=== PATIENT | female | born 1995 | race Caucasian/White ===

== ENCOUNTER 2022-08-30 18:58 | Emergency (ER) | payer OTHER ==
[~2022-08-30] VITALS: Ht 160 cm; Wt 81.7 kg
[2022-08-30 21:25] LABS: BASOPHILS ABSOLUTE AUTO 0.08 K/mm3 (0.00-0.23); BASOPHILS PERCENT AUTO 2 % (0-2); EOSINOPHILS ABSOLUTE AUTO 0.03 K/mm3 (0.00-0.68); EOSINOPHILS PERCENT AUTO 1 % (0-6); Hemoglobin 15.3 g/dL (11.5-16.0); IMMATURE GRAN ABSOLUTE AUTO 0.01 K/mm3 (0.00-0.10); IMMATURE GRAN PERCENT AUTO 0 % (0-1); LYMPHOCYTES ABSOLUTE AUTO 1.41 K/mm3 (0.84-5.20); LYMPHOCYTES PERCENT AUTO 30 % (21-46); MONOCYTES ABSOLUTE AUTO 0.47 K/mm3 (0.16-1.47); MONOCYTES PERCENT AUTO 10 % (4-13); Mean Corpuscular HGB 32.5 pg (26.0-34.0); Mean Corpuscular HGB Conc 34.8 g/dL (31.5-36.5); Mean Corpuscular Volume 93 fL (80-100); Mean Platelet Volume 9.1 fL (9.1-12.4); NEUTROPHILS ABSOLUTE AUTO 2.77 K/mm3 (1.96-9.15); NEUTROPHILS PERCENT AUTO 58 % (41-73); Platelet Count 333 K/mm3 (150-400); RDW Standard Deviation 44.7 fL (35.1-46.3); Red Blood Cell Count 4.71 M/mm3 (3.80-5.20); White Blood Cell Count 4.77 K/mm3 (4.00-11.30)
[2022-08-30 21:45] LABS: Albumin, Blood 3.8 g/dL (3.4-5.0); Albumin/Globulin Ratio 0.8 (0.8-1.8); Bilirubin, Total 0.9 mg/dL (0.1-1.0); Bun/Creatinine Ratio 17.7 (12.0-20.0); Calcium, Blood 9.5 mg/dL (8.5-10.1); Creatinine, Blood 0.45 mg/dL (0.40-1.00); Globulin, Blood 4.8 g/dL (2.2-4.0); Potassium, Blood 4.2 mmol/L (3.5-5.5); Total Protein, Blood 8.6 g/dL (6.4-8.2)
== END 2022-08-30 23:10 | disposition home or self-care (01) ==
LOC: ER 18:58
PROVIDERS: Physician Assistant
DX: S93.401A Sprain of unspecified ligament of right ankle, initial encounter (principal); R00.0 Tachycardia, unspecified; F17.210 Nicotine dependence, cigarettes, uncomplicated; W10.9XXA Fall (on) (from) unspecified stairs and steps, initial encounter; Z88.0 Allergy status to penicillin
CPT/HCPCS: 71046; 73610; 80053; 84703; 85025; 85379; 93005; 93010; 99284-25; A9270; J7030

== ENCOUNTER 2022-09-12 14:25 | Inpatient (IN) | payer OTHER ==
[~2022-09-12] VITALS: Ht 160 cm; Wt 97.3 kg
[~2022-09-12 14:25] MED LIST: ONDA4ODT MM
[2022-09-12 15:35] LABS: BASOPHILS ABSOLUTE AUTO 0.07 K/mm3 (0.00-0.23); BASOPHILS PERCENT AUTO 1 % (0-2); EOSINOPHILS ABSOLUTE AUTO 0.06 K/mm3 (0.00-0.68); EOSINOPHILS PERCENT AUTO 1 % (0-6); Hematocrit 38.4 % (33.0-51.0); Hemoglobin 13.7 g/dL (11.5-16.0); IMMATURE GRAN ABSOLUTE AUTO 0.07 K/mm3 (0.00-0.10); IMMATURE GRAN PERCENT AUTO 1 % (0-1); LYMPHOCYTES ABSOLUTE AUTO 1.22 K/mm3 (0.84-5.20); LYMPHOCYTES PERCENT AUTO 21 % (21-46); MONOCYTES ABSOLUTE AUTO 0.72 K/mm3 (0.16-1.47); MONOCYTES PERCENT AUTO 12 % (4-13); Mean Corpuscular HGB 32.5 pg (26.0-34.0); Mean Corpuscular HGB Conc 35.7 g/dL (31.5-36.5); Mean Corpuscular Volume 91 fL (80-100); Mean Platelet Volume 9.5 fL (9.1-12.4); NEUTROPHILS ABSOLUTE AUTO 3.77 K/mm3 (1.96-9.15); NEUTROPHILS PERCENT AUTO 64 % (41-73); NRBC ABSOLUTE 0.02 K/mm3 (0.00-0.02); NRBC Auto 0.3 /100 WBC (0.0-0.2); Platelet Count 374 K/mm3 (150-400); RDW Coefficient Variation 12.1 % (11.7-14.2); RDW Standard Deviation 40.4 fL (35.1-46.3); Red Blood Cell Count 4.21 M/mm3 (3.80-5.20); White Blood Cell Count 5.91 K/mm3 (4.00-11.30)
[2022-09-12 15:52] LABS: Albumin, Blood 3.7 g/dL (3.4-5.0); Albumin/Globulin Ratio 0.9 (0.8-1.8); Bilirubin, Direct 0.6 mg/dL (0.0-0.3); Bilirubin, Indirect 0.3 mg/dL (0.1-0.7); Bilirubin, Total 0.9 mg/dL (0.1-1.0); Calcium, Blood 10.3 mg/dL (8.5-10.1); Creatinine, Blood 0.45 mg/dL (0.40-1.00); Globulin, Blood 4.3 g/dL (2.2-4.0); Magnesium, Blood 1.5 mg/dL (1.6-2.4); Potassium, Blood 2.5 mmol/L (3.5-5.5)
[2022-09-12 20:35] LABS: Ethanol (Alcohol), Blood, Med <3 mg/dL; Magnesium, Blood 1.6 mg/dL (1.6-2.4)
[2022-09-12 23:10] LABS: Source, Urine Clean Catch
[2022-09-12 23:19] LABS: Appearance, Urine Clear (Clear); Bilirubin, Urine Neg (Neg); Blood, Urine 1+ (Neg); Color, Urine Amber (P-Yellow); Glucose Qualitative, Urine Neg (Neg); Ketones, Urine Neg (Neg); Leukocyte Esterase, Urine 3+ (Neg); Nitrite, Urine Neg (Neg); Protein, Urine 2+ (Neg); Urobilinogen, Urine 1+ (Normal); pH, Urine 6.5 (5.0-8.0)
[2022-09-12 23:59] LABS: Bacteria Mod /hpf; Calcium Oxalate Crystals Few /hpf; Hyaline Casts 0-2 /lpf (0-2); Squamous Epithelial Cells Few /hpf (Few); White Blood Cells, Urine 25-50 /hpf (0-5)
[2022-09-13 00:59] VITALS: BP 115/72
[2022-09-13] MEDS ORDERED: ACET500 PO (01:12)
[2022-09-13] MEDS ORDERED: IBUP600 PO (01:12)
--- NOTE | 2022-09-13 01:56 | NUR ---
PT ARRIVED TO ROOM 338 FROM ER. PT A/O, HR TACHY 1'TEENS. PT REP OCC CHEST PRESSURE AND PALPITATIONS, DENIES AT THIS TIME. ATTEMPTED TO TX PT FROM GURNEY TO BED, PT LEGS APPEARED TO BUCKLE, PT NEEDED MAX ASSIST TO COMPLETE TX TO BED. PT REP LEGS W/INC WEAKNESS APPX 2 WEEKS. BLE WEAK, PT REP LEGS FEEL NUMB, REP DEC SENSATION TO FEET. PT REP OCC SHARP SHOOTING PAINS TO BLE. FEET COOL/PINK, CAP REFILL APPX 5 SEC. BUE TIME STUDY OBSERVER WEAK W/MILD TREMORS NOTED, PT REP TREMORS NEW R/T BLE WEAKNESS. PT REP ETOH USE APPX 4X WEEK, REP LAST DRINK APPX 36 HRS AGO. PT REP MILD NAUSEA, REP CHRONIC DIARRHEA, DENIES BLOODY STOOLS. ABD SOFT, MOD DISTENDED, PT REP PAIN TO RUQ AND ACCROSS UPPER ABD, REP ABD PAIN KEMAL AT THIS TIME. PT AND BROTHER ORIENTED TO ROOM/CALL LIGHT AND TX PLAN.
[2022-09-13 05:34] LABS: BASOPHILS ABSOLUTE AUTO 0.04 K/mm3 (0.00-0.23); BASOPHILS PERCENT AUTO 1 % (0-2); EOSINOPHILS ABSOLUTE AUTO 0.08 K/mm3 (0.00-0.68); EOSINOPHILS PERCENT AUTO 2 % (0-6); Hematocrit 32.8 % (33.0-51.0); Hemoglobin 11.3 g/dL (11.5-16.0); IMMATURE GRAN ABSOLUTE AUTO 0.08 K/mm3 (0.00-0.10); IMMATURE GRAN PERCENT AUTO 2 % (0-1); LYMPHOCYTES ABSOLUTE AUTO 1.07 K/mm3 (0.84-5.20); LYMPHOCYTES PERCENT AUTO 24 % (21-46); MONOCYTES ABSOLUTE AUTO 0.68 K/mm3 (0.16-1.47); MONOCYTES PERCENT AUTO 16 % (4-13); Mean Corpuscular HGB Conc 34.5 g/dL (31.5-36.5); Mean Corpuscular Volume 93 fL (80-100); Mean Platelet Volume 9.5 fL (9.1-12.4); NEUTROPHILS ABSOLUTE AUTO 2.45 K/mm3 (1.96-9.15); NEUTROPHILS PERCENT AUTO 56 % (41-73); Platelet Count 312 K/mm3 (150-400); RDW Coefficient Variation 12.4 % (11.7-14.2); RDW Standard Deviation 42.4 fL (35.1-46.3); Red Blood Cell Count 3.53 M/mm3 (3.80-5.20)
[2022-09-13 05:54] LABS: Albumin, Blood 3.2 g/dL (3.4-5.0); Albumin/Globulin Ratio 0.9 (0.8-1.8); Bilirubin, Total 0.7 mg/dL (0.1-1.0); Bun/Creatinine Ratio 18.8 (12.0-20.0); Calcium, Blood 8.5 mg/dL (8.5-10.1); Creatinine, Blood 0.37 mg/dL (0.40-1.00); Globulin, Blood 3.7 g/dL (2.2-4.0); Potassium, Blood 2.7 mmol/L (3.5-5.5); Total Protein, Blood 6.9 g/dL (6.4-8.2)
[2022-09-13 06:31] LABS: Magnesium, Blood 2.1 mg/dL (1.6-2.4)
--- NOTE | 2022-09-13 07:54 | NUR ---
PT HR TRENDING 90'S THIS AM, PT DENIES CP/PRESSURE OR PALPITATIONS. OTHER VSS. PT CONT TO C/O BLE NUMBNESS, LEGS WEAK AND UNCOORDINATED WHEN UP, PT CONT TO C/O THROBBING W/INTERMITTANT SHARP SHOOTING PAINS IN LEDS. BUE WEAK, PT HAVING DIFFICULTY W/FINE MOTOR SKILLS. PT NEEDING 2 MAX ASSIST TO BSC. PT DENIED ABD PAIN/N/V, DID HAVE DIARRHEA X1. PT MEDCIATED FOR BLE PAIN W/FENTANYL X1 W/MINIMAL RELIEF. IVF AND K+ RUNNING PER EMAR. BEDSIDE REPORT GIVEN TO MILAGROS KING.
[2022-09-13 08:03] VITALS: BP 121/80
[2022-09-13 12:15] LABS: Bun/Creatinine Ratio 16.5 (12.0-20.0); Creatinine, Blood 0.36 mg/dL (0.40-1.00); Potassium, Blood 3.5 mmol/L (3.5-5.5)
[2022-09-13 13:12] LABS: Thyroid Stimulating Hormone 1.09 uIU/mL (0.360-4.800)
[2022-09-13 15:43] VITALS: BP 118/79
--- NOTE | 2022-09-13 18:36 | NUR ---
PT X2 MAX ASSIST TO BSC. PT IS FAR FROM BASELINE PHYSICALLY. PT IS WEAK AND UNSTEADY. CALLS APPROPRIATELY. CIWAS = 3-4 THIS SHIFT. ANXIETY MAY BE FROM SITUATION VS. WITHDRAWLS. PT TOLERATING REGULAR DIET WELL. PT REPORTS HAVING FEELINGS OF A YEAST INFECTION DDEVELOPING. DIFLUCAN GIVEN.
[2022-09-13 20:04] VITALS: BP 122/84
[2022-09-14] VITALS (31 sets, daily range): BP systolic 87–139; BP diastolic 51–107
[2022-09-14 06:37] LABS: Hematocrit 33.2 % (33.0-51.0); Hemoglobin 11.1 g/dL (11.5-16.0); Mean Corpuscular HGB Conc 33.4 g/dL (31.5-36.5); Mean Corpuscular Volume 96 fL (80-100); Mean Platelet Volume 9.8 fL (9.1-12.4); Platelet Count 337 K/mm3 (150-400); RDW Coefficient Variation 12.8 % (11.7-14.2); RDW Standard Deviation 44.3 fL (35.1-46.3); Red Blood Cell Count 3.47 M/mm3 (3.80-5.20); White Blood Cell Count 4.74 K/mm3 (4.00-11.30)
[2022-09-14 06:48] LABS: Albumin, Blood 3.1 g/dL (3.4-5.0); Albumin/Globulin Ratio 0.9 (0.8-1.8); Bilirubin, Total 0.5 mg/dL (0.1-1.0); Bun/Creatinine Ratio 17.9 (12.0-20.0); Creatinine, Blood 0.34 mg/dL (0.40-1.00); Globulin, Blood 3.6 g/dL (2.2-4.0); Magnesium, Blood 1.8 mg/dL (1.6-2.4); Phosphorus, Blood 2.5 mg/dL (2.5-4.9); Potassium, Blood 3.2 mmol/L (3.5-5.5); Total Protein, Blood 6.7 g/dL (6.4-8.2)
--- NOTE | 2022-09-14 07:56 | NUR ---
PATIENT AWAKE AND FRIGHTENED ALL NIGHT. FREQUENTLY PUTTING LEGS OVER OR THROUGH RAILS. PATIENT IS SEEING FAMILY IN ROOM, HEARING HER BROTHER TALK. (WHO IS THE PERSON WHO BROUGHT HER IN) MAIRA IS PROFOUNDLY WEAK. SHE IS REQUIRING A 4 PERSON ASSIST TO PIVOT TO THE COMMODE (WHICH WAS NECESSARY BECAUSE THE PATIENT HAD GOTTEN BEYOND THE RAILS AND WAS BALANCING ON THE EDGE OF THE BED. GOING BACK TO THE BED, THE PATIENT'S LEGS GAVE OUT AND BECAME FLACCID. MAIRA WAS TERRIFIED. PATIENT CONTINUES TO HAVE PARASTHESIAS IN HANDS AND FEET WHICH HAVE BEEN GETTING PROGRESSIVELY WORSE.
[2022-09-14 14:00] LABS: U Benzodiazapine Screen DETECTED; U Cannabinoids Screen DETECTED
[2022-09-14 14:01] LABS: U Amphetamine Screen Not Detected; U Barbituate Screen Not Detected; U Buprenorphine Screen Not Detected; U Cocaine Screen Not Detected; U Methadone Screen Not Detected; U Methamphetamine Screen Not Detected; U Opiates Screen Not Detected; U Oxycodone Screen Not Detected; U Phencyclidine Screen Not Detected; U Propoxyphene Screen Not Detected
--- NOTE | 2022-09-14 16:07 | NUR ---
Patient AOx2, this morning, poor historian. Asked questions about history, patient stated she drinks alcohol to help her sleep. She stated she drinks 4 shots or beer at night, unless she goes to a constitution party. But later she told the MD, she only drinks 3x weekly. Patient stated she has had tremors in the past, after she stopped drinking. 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 Tremors noted in hands, BLE, patient reported numbness/tingling in hands and legs. Unsteady gait, unable to get out of bed safety. Helped patient use female urinal in bed. CIWA scores 11 this AM and progressed to 18. IV Ativan & Librium for alcohol withdrawal. PRNs uneffective. Tele HR maintaing 119-128, pts HR jumps to 140-150s with activity. But does not maintain this rate. 1 episode of BM incontience this shift. Patient does not use call light or yell out for help. Tries to get OOB when needing to void. Attempted MRI today, patient unable to stay still for scan. MD assessed patient this afternoon, and instructed RN to transfer pt to ICU.
[2022-09-14 18:26] LABS: Bun/Creatinine Ratio 13.1 (12.0-20.0); Calcium, Blood 8.5 mg/dL (8.5-10.1); Creatinine, Blood 0.38 mg/dL (0.40-1.00); Potassium, Blood 3.5 mmol/L (3.5-5.5)
--- NOTE | 2022-09-14 18:46 | NUR ---
PT UPDATE.... PT ARRIVED ON THE UNIT AT 1400, PT IS A&Ox3 ABLE TO FOLLOW COMMANDS. THE PT'S RIGHT AND LEFT HANDS WERE ARTIE IN A WAY THAT LOOKED LIKE A POSSIBLE TROUSSEAU SIGN. PT WAS IN ST IN THE 120'S-130'S WITH A STABLE BP. SHE QUICKLY BECAME CONFUSED WITH INCREASING TWITCHING AND STRANGE MOVEMENTS OF HER ARMS AND LEGS. THE PT WAS STARTED ON A PRECEDEX GTT AFTER APROX 1.5HRS THE PT STARTED TO CALM AND WAS SLEEPING. SHE WAS TAKEN TO CT FOR A CT OF THE HEAD. PT'S MOM WAS UPDATED PER THE PT'S MOTHER SHE FELL DOWN THE STAIRS AT HER HOME ON August AND CONTINUED TO HAVE ISSUES WITH HER LEGS AND INCREASED WEAKNESS WITH SEVERAL OTHER FALLS SINCE THEN. WILL CONTINUE TO MONITOR UNTIL REPORT IS GIVEN TO ONCOMING RN.
--- NOTE | 2022-09-14 19:15 | NUR ---
ASSUMED CARE OF PT @1900 FROM [place] LINARES. PT WITHDRAWS FROM NOXIOUS STIMULI BUT MAKES NO PURPOSEFUL MOVEMENT OR RESPONSE TO VERBAL STIMULI. PRECEDEX 0.8MCG/KG/HR. CONTINUOUS CARDIAC MONITORING. NSR 80'S, SBP 100-110, MAP >65. 3L O2 VIA NC. RR 20'S, SPO2 >94%. LRS 150MLS/HR. PG NANNETTE PATENT AND INFUSING. 20GA LFA PATENT AND INFUSING. ATTENDS IN PLACE.
--- NOTE | 2022-09-14 22:00 | NUR ---
UPDATE PT BROTHER, LAYLA, CALLED FOR UPDATE. GAVE UPDATE ON CURRENT STATUS. BROTHER STATES PT HAS BEEN EXPERIENCING SOME CONFUSION AND WEAKNESS FOR A FEW WEEKS THAT HE KNOWS OF.
[2022-09-15] VITALS (51 sets, daily range): BP systolic 96–130; BP diastolic 38–97
--- NOTE | 2022-09-15 05:43 | NUR ---
SUMMARY NEURO/PSYCH/MOBILITY: SEDATED ON PRECEDEX. TITRATED DOWN THROUGHOUT SHIFT, CURRENTLY @0.5MCG/KG/HR. PT MENTATION SLOWLY IMPROVED BUT AGITATION AND RESTLESSNESS INCREASED. CIWA 10-20. MEDICATED PER EMAR. PT ABLE TO ANSWER BASIC YES/NO QUESTIONS. ORIENTED TO SELF AND PLACE WITH REDIRECTION. ABLE TO FOLLOW SOME COMMANDS. MODERATE TREMORS IN UPPER EXTREMETIES. ABLE TO MOVE LOWER EXTREMETIES. PT WILL NOT OPEN EYES PURPOSEFULY. TMAX 99.9. RESP: CURRENTLY ON 5L O2 VIA NC. PT WILL DESAT TO UPPER 80'S WITH CONSTANT MOVEMENT. RR 20-30'S, SPO2 >92% CARDIAC: CONTINUOUS CARDIAC MONITORING. NSR 80'S, SBP STABLE, MAP >65. GI: PT DOES NOT COMPLAIN OF OR ACKNOWLEDGE NAUSEA. NO VOMITING. NO BM THIS SHIFT. : PT IS HAVING FREQUENT INCONTINENT VOIDS. PULLS PUREWICK OUT OF PLACE IMMEDIATELY. ATTENDS IN PLACE. SKIN: ASSESSMENT REMAINS UNCHANGED. IV ACCESS: PG JOYCE PATENT AND INFUSING. DRAWS BLOOD. 20GA R WRIST PATENT W/SALINE LOCK.
[2022-09-15 06:17] LABS: BASOPHILS ABSOLUTE AUTO 0.04 K/mm3 (0.00-0.23); BASOPHILS PERCENT AUTO 1 % (0-2); EOSINOPHILS ABSOLUTE AUTO 0.06 K/mm3 (0.00-0.68); EOSINOPHILS PERCENT AUTO 1 % (0-6); Hematocrit 33.1 % (33.0-51.0); Hemoglobin 11.2 g/dL (11.5-16.0); IMMATURE GRAN ABSOLUTE AUTO 0.09 K/mm3 (0.00-0.10); IMMATURE GRAN PERCENT AUTO 1 % (0-1); LYMPHOCYTES ABSOLUTE AUTO 0.91 K/mm3 (0.84-5.20); LYMPHOCYTES PERCENT AUTO 13 % (21-46); MONOCYTES ABSOLUTE AUTO 1.08 K/mm3 (0.16-1.47); MONOCYTES PERCENT AUTO 16 % (4-13); Mean Corpuscular HGB 32.5 pg (26.0-34.0); Mean Corpuscular HGB Conc 33.8 g/dL (31.5-36.5); Mean Corpuscular Volume 96 fL (80-100); Mean Platelet Volume 9.4 fL (9.1-12.4); NEUTROPHILS PERCENT AUTO 68 % (41-73); NRBC ABSOLUTE 0.02 K/mm3 (0.00-0.02); NRBC Auto 0.3 /100 WBC (0.0-0.2); Platelet Count 286 K/mm3 (150-400); RDW Coefficient Variation 12.9 % (11.7-14.2); RDW Standard Deviation 45.1 fL (35.1-46.3); Red Blood Cell Count 3.45 M/mm3 (3.80-5.20); White Blood Cell Count 6.78 K/mm3 (4.00-11.30)
[2022-09-15 06:36] LABS: Albumin, Blood 2.5 g/dL (3.4-5.0); Albumin/Globulin Ratio 0.7 (0.8-1.8); Bilirubin, Total 0.5 mg/dL (0.1-1.0); Bun/Creatinine Ratio 12.9 (12.0-20.0); Calcium, Blood 8.9 mg/dL (8.5-10.1); Creatinine, Blood 0.39 mg/dL (0.40-1.00); Globulin, Blood 3.7 g/dL (2.2-4.0); Potassium, Blood 4.4 mmol/L (3.5-5.5); Total Protein, Blood 6.2 g/dL (6.4-8.2)
--- NOTE | 2022-09-15 07:26 | NUR ---
[place] of Care Note AT start of shift, pt resting in bed with intermittent periods of restlessness. Precedex gtt at 0.5 mcg/kg/hr. Bed alarm set. Pt posturing mainly with right hand and foot turned inward. Able to follow basic commands with encouragement. VSS on assessment.
[2022-09-15 09:09] LABS: Bun/Creatinine Ratio 11.9 (12.0-20.0); Creatinine, Blood 0.42 mg/dL (0.40-1.00); Potassium, Blood 4.2 mmol/L (3.5-5.5)
--- NOTE | 2022-09-15 14:35 | NUR ---
UPDATE PT A&OX3-4, MUCH MORE COHERANT THAN THIS AM. TOLERATING ICE CHIPS WELL, GOAL TO ADVANCE TO THIN LIQUIDS AND THEN OBTAIN DIET ORDER. FOLLOWING COMMANDS, IS APPRORIATE. CIWA SCORES BELOW 8 SINCE THE BEGINING OF SHIFT.
--- NOTE | 2022-09-15 15:19 | NUR ---
UPDATE PATIENT TRANSFERED TO PCU 4
--- NOTE | 2022-09-15 16:06 | NUR ---
1520 TO PCU VIA BED, MAX ASSIST TO TRANSFER WITH SLIDE SHEET, RESPONDS SLOWLY TO QUESTIONS. ABLE TO STATE NAME, BIRTHDATE AND DATE, DENIES VOICES OR VISIAL HALLUCINATIONS. PT ASKING WHEN TODAY SHE IS HAVING HER GALLBLADDER OUT. TREMORS OF RIGHT HAND AND REPORTS SHE HAS GENERALIZED WEAKNESS BUT FEELS LIKE RIGHT ARM IS WEAKEWR THAN LEFT. PT DENIES PAIN OR SOB. INCONTINENT OF URINE AND PUREWICK PLACED
--- NOTE | 2022-09-15 17:13 | NUR ---
NO CHANGE IN STATUS SINCE TRANSFER FROM ICU. PATIENT CALLS OUT AND DOES NOT USE CALL LIGHT, BED ALARM IN PLACE. MOVES ALL EXTREMITIES, GENERALIZED WEAKNESS. PUREWICK IN PLACE. PT DENIES PAIN. NO TREMORS . PT TELLS ME SHE HAS ANXIETY AND IS ASKING WHERE HER FAMILY IS, REASSURANCE GIVEN TO PATIENT AND DISCUSSED WITH PATIENT TIMELINE OF EVENTS PER HER H/P THAT LED UP TO HOSPITALIZATION
--- NOTE | 2022-09-15 18:32 | NUR ---
1810 TEMP 101.9, PT REPORTS 10/10 PAIN TO BLE. PT RESTLESS, ASKING WHERE FAMILY IS, CIWA 9. TYLENOL AND ATIVAN GIVEN. PT TOOK PILLS WITH WATER, NO DIFFICULTY SWALLOWING
[2022-09-16 03:06] VITALS: BP 112/79
--- NOTE | 2022-09-16 04:04 | NUR ---
I&O CATH 700 CC OUT
[2022-09-16 06:01] LABS: Albumin, Blood 2.4 g/dL (3.4-5.0); Albumin/Globulin Ratio 0.7 (0.8-1.8); Bilirubin, Total 0.6 mg/dL (0.1-1.0); Bun/Creatinine Ratio 13.7 (12.0-20.0); Calcium, Blood 8.7 mg/dL (8.5-10.1); Creatinine, Blood 0.44 mg/dL (0.40-1.00); Globulin, Blood 3.5 g/dL (2.2-4.0); Magnesium, Blood 1.4 mg/dL (1.6-2.4); Potassium, Blood 3.9 mmol/L (3.5-5.5); Total Protein, Blood 5.9 g/dL (6.4-8.2)
--- NOTE | 2022-09-16 06:12 | NUR ---
I&O CATH 650 OUT
--- NOTE | 2022-09-16 07:30 | NUR ---
ASSUMED CARE: PT IN BED, SCOOTED DOWN, FIDDLING WITH BLANKETS. UPON ASKING ORIENTATION QUESTIONS, PATIENT KNEW NAME AND DATE OF , THOUGHT SHE WAS IN THE URGENT CARE. MEDICATING ABLE
[2022-09-16 07:44] VITALS: BP 127/93
--- NOTE | 2022-09-16 11:15 | NUR ---
CALL TO DR CONNER REGARDING PT'S HR OF 120S-140S. TO PLACE ORDER FOR IV FLUIDS. TELE AWARE OF NEW ORDERS
[2022-09-16 13:54] VITALS: BP 131/78
[2022-09-16 13:57] LABS: Source, Urine Foley catheter
[2022-09-16 14:08] LABS: Appearance, Urine Clear (Clear); Bilirubin, Urine Neg (Neg); Blood, Urine Neg (Neg); Glucose Qualitative, Urine Neg (Neg); Ketones, Urine Neg (Neg); Leukocyte Esterase, Urine Neg (Neg); Nitrite, Urine Neg (Neg); Protein, Urine Neg (Neg); Specific Gravity, Urine 1.015 (1.003-1.022); Urobilinogen, Urine NORM (Normal)
--- NOTE | 2022-09-16 14:15 | NUR ---
CALL TO DR CONNER DUE TO PT RETAINING URINE. BLADDER SCAN SHOWED 500-600. DR AWARE THAT 2 STRAIGHT CATHS HAD ALREADY BEEN DONE. ASKED DR CONNER IF ANOTHER STRAIGHT CATH SHOULD BE DONE. DR ORDERED FOR GASTELUM DUE TO LIKELY NEEDING ONE SOON ANYWAY. SAMPLE COLLECTED AND SENT. FAMILY AT BEDSIDE AND EDUCATED ON NEED AND ORDERS.
[2022-09-16 14:35] LABS: Color, Urine Pale Yellow (P-Yellow)
[2022-09-16 15:08] VITALS: BP 143/95
--- NOTE | 2022-09-16 15:54 | NUR ---
PT'S MOTHER CAME TO BEDSIDE AND STATED THAT PT HAD WEAKNESS, FALLS AND ANOREXIA FOR 2 MONTHS PRIOR TO HOSPITALIZATION. DISCUSSED WITH DR CHAPIN TO MAKE TEAM AWARE THAT WEAKNESS WAS OCCURRING BEFORE WITHDRAWALS BEGAN.
--- NOTE | 2022-09-16 17:35 | NUR ---
SHIFT SUMMARY: PT HAS BEEN MEDICATED MULTIPLE TIMES THIS SHIFT WITH LIBRIUM AND ATIVAN FOR CIWAS BETWEEN 11 AND 14. GASTELUM CATH PLACED THIS SHIFT FOR RETENTION. BED ALARM ON AND THREE SIDE RAILS FOR SAFETY. FAMILY HAS BEEN BY TO SEE PT AND UPDATED ON STATUS. NO FURTHER NEEDS OR CONCERNS AT THIS TIME.
--- NOTE | 2022-09-17 04:55 | NUR ---
CIWA 19-26, TREATED PER PROTOCOL, ST 118, NO OTHER CHANGES NOTED
[2022-09-17 05:30] LABS: BASOPHILS ABSOLUTE AUTO 0.03 K/mm3 (0.00-0.23); BASOPHILS PERCENT AUTO 1 % (0-2); EOSINOPHILS ABSOLUTE AUTO 0.08 K/mm3 (0.00-0.68); EOSINOPHILS PERCENT AUTO 1 % (0-6); Hematocrit 32.5 % (33.0-51.0); IMMATURE GRAN ABSOLUTE AUTO 0.08 K/mm3 (0.00-0.10); IMMATURE GRAN PERCENT AUTO 1 % (0-1); LYMPHOCYTES ABSOLUTE AUTO 0.98 K/mm3 (0.84-5.20); LYMPHOCYTES PERCENT AUTO 17 % (21-46); MONOCYTES ABSOLUTE AUTO 0.86 K/mm3 (0.16-1.47); MONOCYTES PERCENT AUTO 15 % (4-13); Mean Corpuscular HGB 32.5 pg (26.0-34.0); Mean Corpuscular HGB Conc 33.8 g/dL (31.5-36.5); Mean Corpuscular Volume 96 fL (80-100); Mean Platelet Volume 9.4 fL (9.1-12.4); NEUTROPHILS ABSOLUTE AUTO 3.81 K/mm3 (1.96-9.15); NEUTROPHILS PERCENT AUTO 65 % (41-73); Platelet Count 336 K/mm3 (150-400); RDW Coefficient Variation 13.2 % (11.7-14.2); RDW Standard Deviation 46.6 fL (35.1-46.3); Red Blood Cell Count 3.38 M/mm3 (3.80-5.20); White Blood Cell Count 5.84 K/mm3 (4.00-11.30)
[2022-09-17 05:57] LABS: Albumin, Blood 2.5 g/dL (3.4-5.0); Albumin/Globulin Ratio 0.7 (0.8-1.8); Bilirubin, Total 0.5 mg/dL (0.1-1.0); Bun/Creatinine Ratio 14.2 (12.0-20.0); Calcium, Blood 8.8 mg/dL (8.5-10.1); Creatinine, Blood 0.42 mg/dL (0.40-1.00); Globulin, Blood 3.8 g/dL (2.2-4.0); Magnesium, Blood 2.2 mg/dL (1.6-2.4); Phosphorus, Blood 4.3 mg/dL (2.5-4.9); Potassium, Blood 3.7 mmol/L (3.5-5.5); Total Protein, Blood 6.3 g/dL (6.4-8.2)
[2022-09-17 07:37] VITALS: BP 124/90
[2022-09-17 12:36] VITALS: BP 125/84
[2022-09-17 16:09] VITALS: BP 126/90
--- NOTE | 2022-09-17 17:17 | NUR ---
SHIFT SUMMARY [facility] 14-16 THIS SHIFT. CONFUSED, VISUAL AND AUDITORY HALLUCINATIONS, SENSATIONS OF TINGLING AND BURNING IN HANDS AND FEET. MEDICATED PER EMAR. TACHYCARDIC, VS OTHERWISE STABLE. GASTELUM PATENT AND DRAINING. IV FLUID RUNNING. GAVE UPDATE VIA TELEPHONE TO BROTHER. OCCASIONALLY ATTEMPTS TO GET OUT OF BED, DOES NOT CALL. PLAN IS TO WAIT UNTIL ETOH WITHDRAWAL IS STABLE AND THEN COMPLETE CERVICAL MRI.
[2022-09-17 19:52] VITALS: BP 129/89
--- NOTE | 2022-09-17 21:23 | NUR ---
ASSUMPTION OF CARE/ASSESSMENT: ASSUMED CARE OF PT AT 1900. PT IN BED AND A&O X 2; PT ONLY ABLE TO STATE HER NAME/ AND THAT SHE IS IN URGENT CARE DUE TO HER DRINKING, BUT PT UNABLE TO STATE ACCURATE DATE/TIME. PT IS OBSERVED TO BE ANXIOUS AND EXPERIENCING AUDITORY HALLUCINATIONS; CIWA IS 16. PT CURRENTLY MAXED OUT ON ATIVAN SO NEXT AVAILABLE DOSE IS NOT UNTIL 2200. PT IS ON RA WITH CLEAR LUNG SOUNDS THROUGHOUT WITH SPO2 94<. PT SINUS TACH ON MONITOR WITH HR 110'S AND SBP 120'S; PT HAS NO C/O CHEST PAIN OR SOB AT THIS TIME. PT HAS C/O NAUSEA AT THIS TIME; ABD OBESE, MILDLY TENDER AND HYPOACTIVE BOWEL SOUNDS. PT TOLERATING PO FLUID INTAKE AT THIS TIME. GASTELUM CATH IN PLACE R/T RETENTION; PATENT, DRAINING TO GRAVITY AND URINE CLEAR/YELLOW. PT FORGETFUL ABOUT CATHETER AND BECOMES WORRIED THAT THERE IS SOMETHING WRONG WHEN SHE NOTICES HER CATHETER; PT EDUCATED ON WHY SHE HAS A CATHETER AND THAT HER PERINEAL AREA OBSERVED TO BE WITHOUT ANY ABNORMALITIES. SKIN INTACT AND WARM, PPP X 4, POWERGLIDE TO NANNETTE WITH LR GTT @ 150 MLS/HR. BED LOWERED, CALL LIGHT IN REACH, WILL CONTINUE TO MONITOR.
[2022-09-18] VITALS (8 sets, daily range): BP systolic 131–141; BP diastolic 92–102
--- NOTE | 2022-09-18 00:45 | NUR ---
PT UPDATE: PT STATES VERY ADAMANTLY THAT SHE WOULD LIKE TO LEAVE AMA; AT THIS TIME PT IS A&O X 4 AND STATES THAT SHE UNDERSTANDS THE RISKS LEAVING NOW DURING HER ALCOHOL WITHDRAWAL. HER CIWA IS 14-16 AND SHE WAS EDUCATED REGARDING THE RISKS OF SEIZURES IF SHE WERE TO LEAVE AMA. PT STATES THAT SHE STILL WANTS TO GO HOME. DR BAEZ NOTIFED AND STATED THAT IF SHE IS A&O THEN WHEN CANNOT HOLD HER AGAINST HER WILL AND THAT SHE CAN GO HOME IF SHE WANTS TO. DR BILLS BY FOR BEDSIDE ASSESSMENT, NO NEW ORDERS AT THIS TIME. THIS RN HELPING PT CALL FAMILY AND SIGNIFICANT OTHER TO SET UP SAFE TRANSPORTATION HOME BUT ALL CALLS HAVE BEEN UNSUCCESSFUL. THIS RN ATTEMPTING TO CONVINCE PT TO STAY THROUGHOUT THE NIGHT AND TRY TO GO HOME IN THE MORNING WHEN SHE WOULD BE ABLE TO GET A RIDE HOME SAFELY. WILL CONTINUE TO MONITOR.
--- NOTE | 2022-09-18 01:43 | NUR ---
PT UPDATE: PT AGGREEING TO STAY THE REMAINDER OF THE NIGHT AND GO HOME IN THE MORNING ONCE SHE CAN GET AHOLD OF A FAMILY MEMBER OR SIGNIFICANT OTHER FOR A RIDE HOME. WILL CONTINUE TO MONITOR
[2022-09-18 04:30] LABS: Bun/Creatinine Ratio 7.5 (12.0-20.0); Calcium, Blood 9.1 mg/dL (8.5-10.1); Creatinine, Blood 0.4 mg/dL (0.40-1.00); Potassium, Blood 4.2 mmol/L (3.5-5.5)
--- NOTE | 2022-09-18 06:04 | NUR ---
SHIFT SUMMARY: PT STARTING TO HAVE MORE VISUAL DISTURBANCES THIS MORNING AND HAS BEEN BECOMING MORE ANXIOUS AND UPSET. ATTEMPTED TO EDUCATE PT ABOUT ETOH WITHDRAWL AND HOW IT CAN CAUSE VISUAL DISTURBANCES BUT PT BECOME MORE UPSET AND STATES " I AM NOT CRAZY". PT ATTEMPTS TO GET OOB UNSAFELY AND NEEDS CONSTANT REMINDERS HOW HER LEGS ARE TOO WEAK TO BEAR WEIGHT AND THAT SHE CAN FALL AND INJURY HERSELF; PT RELUCTANTLY WILL GET BACK INTO BED. TOTAL ATIVAN GIVEN THIS SHIFT WAS 6 MG. LR CONTINUES TO INFUSE AT 150 MLS/HR. PT NOT ABLE TO USE CALL LIGHT BUT WILL MAKE NEEDS KNOWN WHEN ASKED. BED LOWERED, BED ALARM ON, WILL CONTINUE TO MONITOR UNTIL ONCOMING RN ARRIVES.
--- NOTE | 2022-09-18 17:40 | NUR ---
SHIFT SUMMARY PT CONTINUES TO REST COMFORTABLY IN BED. PT CONTINUES TO EXPERIENCE VISUAL HALLUCINATIONS, BELEIVES HER FAMILY IS IN THE ROOM. PT ALSO EXPERIENCING TREMORS, MEDICATED PER EMAR. PT ANSWERS SOME QUESTIONS APPROPRIATELY, AND FOLLOWS MOST DIRECTIONS. PT IMPULSIVE AT TIMES. POWERGLIDE IN NANNETTE, LR INFUSING AT 150MLS/HR. HR 100'S ON MONITOR, BP STABLE. GASTELUM PATENT AND DRAINING TO GRAVITY, PALE YELLOW URINE. NO ACUTE CHANGES THIS SHIFT. WILL CONTINUE TO MONITOR AND GIVE REPORT TO ONCOMING RN.
[2022-09-19 03:34] VITALS: BP 132/98
[2022-09-19 04:15] LABS: Calcium, Blood 8.6 mg/dL (8.5-10.1); Creatinine, Blood 0.4 mg/dL (0.40-1.00); Potassium, Blood 3.9 mmol/L (3.5-5.5)
--- NOTE | 2022-09-19 04:52 | NUR ---
SHIFT SUMMARY PT A&Ox2-3, KNOWS WHERE SHE IS, WHO SHE IS, REMEMBERS STAFF MEMBERS. IS UNABLE TO STATE WHAT DAY IT IS OR WHY SHE IS HERE. PT STILL HAVING MILD AUDITORY AND VISUAL HALLUCINATIONS. CIWA's RANGING FROM 9-18, MANAGED PER EMAR. BP STABLE, DENIES CP/PRESSURE. SINUS TACH 100-130's. SpO2> 92% RA, DENIES SOB. GASTELUM CATHETER IN PLACE, PATENT AND DRAINING TO GRAVITY. USES BEDPAN FOR BMs. NO OTHER EVENT, WILL REPORT TO ONCOMING RN.
--- NOTE | 2022-09-19 07:00 | NUR ---
ASSUMPTION OF CARE PT RECEIVING LR 150ML/HR. SHE IS A&OX3, CALM AND COOPERATIVE AT THIS TIME. PT IS SLOW TO RESPOND AND SPEAKS SOFTLY. SHE MAKES PURPOSEFUL MOVEMENTS WITH ALL EXTREMITIES BUT HAS DIFFICULTY WITH FINE MOTOR SKILLS. SINUS TACH ON MONITOR WITH RATE 100S-110S. BP STABLE. PT DENIES PAIN AT THIS TIME. BED IN LOW POSITION AND CALL LIGHT WITHIN REACH.
[2022-09-19 09:03] VITALS: BP 128/93
[2022-09-19 11:22] VITALS: BP 123/101
--- NOTE | 2022-09-19 13:13 | NUR ---
MRI/UPDATE PT MEDICATED PER EMAR BEFORE PROCEDURE. PT CALM AND COOPERATIVE. PT TAKEN VIA GURNEY TO MRI. PER AUTOMOBILE SERVICE WRITER, PT RESTLESS, FIDITING AND ATTEMPTING TO CRAWL OUT OF MRI MACHINE. UPON RETURN TO ROOM PT TEARFUL AND ASKING ABOUT HER CHILDREN. RESIDENT TEAM NOTIFIED AND PLAN TO DISCUSS CASE WITH HOSPITALIST TO DEVELOP FURTHER DIAGNOSTIC PLAN. FAMILY MEMBER NOW AT BEDSIDE AND UPDATED ON STATUS OF MRI. VSS AT THIS TIME. BED IN LOW POSITION AND CALL LIGHT WITHIN REACH.
--- NOTE | 2022-09-19 14:10 | NUR ---
UPDATE DR CHAPIN AT BEDSIDE AND DISCUSSING PLAN OF CARE WITH PT AND [id number]. ENCOURAGING DAILY PT/OT AND DISCUSS POSSIBLE TEMPORARY PLACEMENT AFTER DISCHARGE.
--- NOTE | 2022-09-19 15:49 | NUR ---
Spoke with Dr Dodge and discussed case. Pt and family may benefit from supportive visit and advanced care planning. Pt resting in bed and is Alert to family and current year. Pt states she is at home in [place]. Pt unable to verbalize appropriate reason for hospital stay. Offered therapeutic listening and validated concerns. Pt's mother Kaity and sister in law Tiara at bedside. Offered supportive conversation. Family appears to still be processing Pt's current condition. Provided Palliative Care contact information and instructed to call with any questions or concerns. Pt appears to be struggling with understanding as well. Family expresses appreciation and are agreeable to continued PC visits. Palliative Care will remain available.
[2022-09-19 15:53] VITALS: BP 135/100
--- NOTE | 2022-09-19 17:26 | NUR ---
SHIFT SUMMARY UNFORTUNANLY PT WAS UNABLE TO TOLERATE MRI TODAY. PER MD THEY ARE CONFIDENT ENOUGH IN HER DX THAT SHE WILL NOT NEED ONE. VERY CLEAR THAT PT IS NO LONGER IN ALCOHOL WITHDRAWAL. THIS WAS DISCUSSED WITH MD, CASE MANAGEMENT AND PT. ROBID ORDERS D/C'd. COGNITIVE/MOBILITY STATUS MAY BE NEW BASELINE FOR PT, BUT ALSO COULD IMPROVE WITH INCREASED THIAMINE DOSES AND PT. FAMILY INFORMED OF DX, BUT IS STILL PROCESSING. PT COGNITIVE STATUS TODAY WAS LABILE, SOMETIMES IS UNSURE OF HER LOCATION. STILL ABLE TO FOLLOW COMMANDS AND WAS APPROPRIATE WITH STAFF TODAY. GASTELUM WAS ALSO REMOVED AND PT HAS BEEN VOIDING IN BEDPAN POST REMOVAL.
[2022-09-19 20:46] VITALS: BP 135/84
[2022-09-19 23:48] VITALS: BP 135/95
[2022-09-20 03:41] VITALS: BP 131/96
--- NOTE | 2022-09-20 04:38 | NUR ---
SHIFT SUMMARY PT A&Ox2-3, KNOWS WHERE SHE IS, WHO SHE IS, REMEMBERS STAFF MEMBERS. IS UNABLE TO STATE WHAT DAY IT IS OR WHY SHE IS HERE. PT STILL HAVING MILD AUDITORY AND VISUAL HALLUCINATIONS. DID NOT REQUIRE ATIVIAN FOR ANXIETY. BP STABLE, DENIES CP/PRESSURE. SINUS TACH 100-130's. SpO2> 92% RA, DENIES SOB. PT UNABLE TO VOID, BLADDER SCAN SHOWED >500 TWICE REQUIRING HER TO BE STRAIGHT CATHED TWICE. USES BEDPAN FOR BMs. NO OTHER EVENT, WILL REPORT TO ONCOMING RN.
[2022-09-20 04:42] LABS: Bun/Creatinine Ratio 6.5 (12.0-20.0); Creatinine, Blood 0.47 mg/dL (0.40-1.00); Potassium, Blood 3.7 mmol/L (3.5-5.5)
[2022-09-20 08:12] VITALS: BP 139/108
--- NOTE | 2022-09-20 12:28 | NUR ---
Brief supportive visit this afternoon. Pt receiving assistance with eating her lunch by TELEPHONY ENGINEER. Pt denies pain but does C/O numbness in her hands. Validated concerns and reviewed plan of care. Pt still appears to be confused and forgetful. No family at bedside. Ended visit to allow Pt to continue eating her lunch. Spoke with Pt's Primary RN Tez. No new concerns reported at this time. Palliative Care will remain available
--- NOTE | 2022-09-20 17:14 | NUR ---
SHIFT SUMMARY PATIENT DROWSY AND SLOW TO RESPOND. SOFT SPOKEN. CONFUSED AND FORGETFUL. VISUAL AND AUDITORY HALLUCINATIONS ONGOING. SEES PEOPLE, PETS, AND HOUSEHOLD OBJECTS IN ROOM THAT ARE NOT THERE. CALM AND COOPERATIVE BUT DOES OCCASIONALLY EXPRESS FEARFULNESS AND BECOMES TEARFUL. COMFORTS WITH VERBAL REASSURANCE AND TOUCH. TOLERATING REGULAR DIET AND LIQUIDS. IV FLUID DC'D. 2 PERSON MAX ASSIST UP TO BSC. WORKED WITH PHYSICAL THERAPY. BECAME EXHAUSTED AND NEEDED TO USE BEDPAN IN AFTERNOON. MULTIPLE BM'S THIS SHIFT. VOIDING WELL, RETENTION RESOLVING, POT VOID RESIDUAL VOLUMES UNDER 150 MLS. STATUS CHANGED TO MEDICAL NO TELE. VSS. CHUY VISITED DURING AFTERNOON. THIS RN SPOKE WITH PATIENT'S MOTHER AND PROVIDED UPDATE. PLAN IS TO RECHECK MAGNESIUM IN AM. DC TO SNF WHEN MEDICALLY STABLE.
[2022-09-20 18:15] VITALS: BP 137/90
--- NOTE | 2022-09-20 18:18 | NUR ---
TRANSFER SUMMARY PT TRANSFERED TO 364 FROM PCU. PT ORIENTED TO ROOM WITH CALL LIGHT IN REACH. BED ALARM IS SET. NO COMPLAINTS OR NEEDS STATED AT THIS TIME. PT ALERT AND RESPONDS APPROPRIATELY TO QUESTIONS. NO ACUTE DISTRESS.
--- NOTE | 2022-09-20 19:08 | NUR ---
1800 TRANSFER REPORT CALLED TO MEDICAL FLOOR RN STUDENT JULI GALLO. PATIENT LEFT UNIT IN BED FOR ROOM 364 AT 1815.
[2022-09-20 19:27] VITALS: BP 121/101
--- NOTE | 2022-09-20 22:59 | NUR ---
HANDOFF GIVEN PT TRANSFERED TO ROOM 344. HANDOFF GIVEN TO ROOM 344 NURSE. PERSONAL POSSESSIONS WITH PT. PT TRANSFERED VIA [facility]
--- NOTE | 2022-09-21 01:48 | NUR ---
09/20/22 2300 Pt wa received to room 344 via bed with all belongings. Pt is very quiet and has eyes closed. pt speaks very softly whe she does talk and is difficult to understand. Pt oriented to room and call light. Assisted on bedpan and did void QS.Bed alarm on, pt is monitored via remote monitoring.
[2022-09-21 02:33] VITALS: BP 134/98
[2022-09-21 05:39] LABS: Bun/Creatinine Ratio 10.1 (12.0-20.0); Calcium, Blood 9.5 mg/dL (8.5-10.1); Creatinine, Blood 0.4 mg/dL (0.40-1.00); Potassium, Blood 3.7 mmol/L (3.5-5.5)
--- NOTE | 2022-09-21 07:24 | NUR ---
Rn summary: Patient has not slept all night. She has mainly dangled on the edge of the bed or sat crosslegged on the bed. Pt does talk to herself and "other people" in the room. Patient has visual hallucination of things on her fingers, bedside table,floor. Pt will push anything on the bedside table to the floor. She puts the blanket on the floor under her feet. pt is very soft spoken and mumbles and is very dificult to understand. Attempt was made at beginning of shift to assist pt to BSC. Pt unable to bear wt on her fet and legs. She has been voiding in the bedpan. Bed alarm remains on and pt monitored by camera. Morning report to Jesica LINARES.
[2022-09-21 08:10] VITALS: BP 130/92
--- NOTE | 2022-09-21 14:25 | NUR ---
RN NOTE MS VOSS IS ALERT, SOFT MUMBLING CONVERSATION THIS MORNING THAT HAS BECOME CLEARER THIS AFTERNOON, EASIER TO UNDERSTAND. SHE IS ORIENTATED TO HERSELF AND TO 2022, BUT SHE IS CONFUSED ABOUT WHERE SHE IS. SHE SAID SHE THOUGHT SHE WAS AT HOME AND SHE HAS BEEN HALLUCINATING THAT HER DAUGHTERS ARE WITH HER. SHE WAS TEARFUL TO FIND OUT THAT SHE WAS HALLUCINATING, BUT SEEMED TO UNDERSTAND THAT SHE HAD BEEN. I TELEPHONED HER BROTHER FROM HER ROOM AND SHE TALKED WITH HIM. SHE IS QUIET, COOPERATIVE BUT FORGETFUL. REACHING OUT FOT THINGS THAT SHE IS SEEING IN FRONT OF HER. VERY WEAK, WEAK INSURANCE INSTRUCTOR HOLDING SIMPLE OBJECTS, WEAK HAND GRASP AND WEAK FOOT MOVEMENT. UP TO [facility] [place] 2 PERSON MAX ASSIST, GAIT BELT, WALKER. SHE WAS ABLE TO TAKE SOME WEIGHT ON HER FEET WITH A LOT OF SUPPORT. BED LOW, CALL LIGHT IN REACH, BED ALARM ON.
[2022-09-21 14:41] VITALS: BP 141/100
--- NOTE | 2022-09-21 17:00 | NUR ---
SHIFT SUMMARY PLEASE SEE NOTE FROM 1425HRS. SINCE THEN PT C/O FEELING ANXIOUS. SHE AGREED TO TAKE SOME ATIVAN TO TAKE THE EDGE OFF. GIVEN 1MG PO ATIVAN AND WILL ASSESS EFFECTIVENESS. HER MOM CALLED EARLIER AND I CALLED HER FROM MAIRA'S ROOM SO THEY COULD CHAT. MAIRA CONTINUES TO HAVE HALLUICINATIONS AND CONFUSION. BED LOW, BED ALARM ON.SIDE RAILS UP.
[2022-09-21 19:30] VITALS: BP 146/107
[2022-09-22 00:50] LABS: Magnesium, Blood 1.8 mg/dL (1.6-2.4); Phosphorus, Blood 4.8 mg/dL (2.5-4.9); Potassium, Blood 3.7 mmol/L (3.5-5.5)
[2022-09-22 05:31] VITALS: BP 134/105
--- NOTE | 2022-09-22 05:55 | NUR ---
SOCK KNITTER SUMMARY PT BETWEEN ALERT AND LETHARGIC T/O SHIFT. ORIENTED TO SELF AND FAMILY. PT HAVING PROGRESSIVELY WORSE HALLUCINATIONS T/O THE NIGHT. BLOOD PRESSURE AND HR HAS BEEN ELEVATED. CALL TO OCCUPATIONAL HEALTH AND SAFETY ADVISER DR--NEW ORDER FOR EKG. EKG ABNORMAL W/CHANGES FROM LAST EKG. DR MELENDEZ NOTIFIED--NEW ORDER FOR 500ML BOLUS, LAB WORK, AND ECHO. NANNETTE PG INFILTRATED DURING 500ML BOLUS. NEW RT FA IV PLACED. PT VERY SOFT SPOKEN AND DIFFICULT TO UNDERSTAND. MOTHER AT BEDSIDE FOR SEVERAL HOURST AT START OF SHIFT. ASSISSTED PT TO BSC MULTIPLE TIMES--LITTLE OUTPUT. PT IS VERY WEAK IN HANDS AND FEET. 2 PERSON MAX ASSIST TO STAND/PIVOT TO BSC. PT IS SLOW TO FOLLOW DIRECTIONS. PO ON VIDEO MONITOR. BED ALARM ON. CALL LIGHT ACCESSIBLE.
--- NOTE | 2022-09-22 06:38 | NUR ---
RN NOTE FOUND PT SITTING BEDSIDE AND CRYING. PT SAID SHE WAS SCARED SOMETHING WAS GOING TO HAPPEN TO HER. PT COULDN'T BE SPECIFIC ABOUT FEARS. GAVE PRN ORAL ATIVAN.
[2022-09-22 07:37] VITALS: BP 137/101
[2022-09-22 15:28] VITALS: BP 100/88
--- NOTE | 2022-09-22 16:29 | NUR ---
SHIFT SUMMARY PT HAS BEEN USING PUREWICK AND BEDPAN FOR TOILETING NEEDS DUE TO WEAKNESS IN LE. SHE HAS HAD PAIN ON AND OFF ALL DAY IN HER HANDS AND FEET. SHE HAD FAMILY AND FRIENDS VISIT TODAY AND BECAME MORE CHATTY WHILE LOVED ONES WERE PRESENT. WHEN NO FAMILY OR FRIENDS ARE PRESENT PT BECOMES VERY LETHARGIC AND EMOTIONAL. SHE WENT FOR AN MRI THIS AFTERNOON THAT WAS SUCCESSFUL WITH IV ATIVAN ADMINISTERED FOR ANXIETY. SHE FORGETS HER OWN LIMITATIONS AND IS BEING MONITORED FOR SAFETY BY REMOTE MONITORING. CALL LIGHT IN REACH AND BED IN LOWEST POSITION. WILL CONTINUE TO PROVIDE CARE UNTIL END OF SHIFT.
[2022-09-22 19:54] VITALS: BP 137/106
--- NOTE | 2022-09-23 05:16 | NUR ---
GENERAL ASSEMBLER INSTALLER SUMMARY PT A/OX1-2 AND ABLE TO MAKE NEEDS KNOWN. PT TEARFUL AND EXPRESSING IRRATIONAL FEARS. OBSERVED PT TALKING TO PEOPLE NOT PRESENT AND USING HANDS TO REACH FOR OR PUSH AWAY OBJECTS NOT PRESENT. PT REMAINS SOFT SPOKEN AND DIFFICULT TO UNDERSTAND. VERY LETHARGIC BUT AWAKE. CONCERNED PT NOT SLEEPING AND INCREASING CONFUSION/HALLUCINATIONS. CALL TO GENETICS NURSE/DR MELENDEZ. NEW ORDER FOR 1X 5MG AMBIEN. DR MELENDEZ AT BEDSIDE TO ASSESS/OBSERVE PT; NOTED DR SAID PT MUCH DIFFERENT THAN TWO NIGHTS AGO AND WOULD DISCUSS WITH ATTENDING PHYS. DR REQUEST TO NOT WAKE PT UP IF SHE RESPONDS WELL TO SLEEP MED. PT SLEPT APROX 4 HOURS AFTER TAKING AMBIEN; THEN BECAME RESTLESS/TEARFUL AGAIN. PT REMAINS VERY WEAK WITH NO DEXTERITY IN HANDS. PT UNABLE TO GRASP OBJECTS WELL AND MAY NEED ASSISTANCE WITH EATING/DRINKING. ENCOURAGED FLUIDS WHEN AT BEDSIDE. PT REMAINS ON MONITOR. BED ALARM SET. CALL LIGHT ACCESSIBLE.
[2022-09-23 05:51] VITALS: BP 135/98
[2022-09-23 08:11] VITALS: BP 129/100
[2022-09-23 08:12] VITALS: BP 129/100
[2022-09-23 09:51] LABS: Bun/Creatinine Ratio 13.6 (12.0-20.0); Calcium, Blood 9.7 mg/dL (8.5-10.1); Creatinine, Blood 0.44 mg/dL (0.40-1.00)
[2022-09-23 17:47] VITALS: BP 134/96
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
[2022-09-23 19:16] VITALS: BP 134/98
--- NOTE | 2022-09-24 05:36 | NUR ---
AIR QUALITY CONSULTANT SUMMARY PT A/OX TO SELF AND FAMILY. PT CONTINUES TO HAVE PERVASIVE/PERSISTANT HALLUCINATIONS AND ANXIETY. PT DESCRIBING BODIES IN HER ROOM. PT WILL REACH FOR OBJECTS NOT PRESENT. PT EASILY TEARFUL. AT START OF SHIFT PT HR WAS SUSTAINING IN 140'S WHILE EXPERIENCING PANIC. CALL TO BRASS POURER/DR MARTINEZ TO INFORM AND DISCUSS. NEW ORDER FOR ONE TIME IV 1MG ATIVAN. MED W/SOME RESULT. HR REMAINED ELEVATED IN 120'S WHEN CHECKED T/O THE NIGHT. PT IS NOT SLEEPING. CALL TO DR MARTINEZ; ORDER FOR 1X 25MG SEROQUEL. PT SLEPT INTERMITTANTLY FOR 3 HOURS AFTER MED. PT CONSTANTLY MOVING BODY AND SITTING UP; KEEPING SELF AWAKE AND EXPRESSING EXTREME IRRATIONAL FEAR. T/O THE NIGHT PT PULLING OFF GOWN AND ATTEMPTING OOB. PT EXTREMETIES REMAIN WEAK; IMPAIRED FINE MOTOR SKILLS. PT NEEDS ASSISTANCE GRASPING ITEMS, ASSISTANCE DRINKING AND TAKING MEDS. PT REMAINS ON MONITOR. BED ALARM SET.
[2022-09-24 08:07] VITALS: BP 133/102
[2022-09-24 09:50] LABS: Bun/Creatinine Ratio 22.2 (12.0-20.0); Calcium, Blood 9.3 mg/dL (8.5-10.1); Creatinine, Blood 0.41 mg/dL (0.40-1.00); Potassium, Blood 3.7 mmol/L (3.5-5.5)
[2022-09-24 10:09] LABS: VITAMIN E(ALPHA TOCOPHEROL) 7.4 mg/L (5.9-19.4); VITAMIN E(GAMMA TOCOPHEROL) 1.4 mg/L (0.7-4.9)
[2022-09-24 16:53] VITALS: BP 126/97
--- NOTE | 2022-09-24 18:39 | NUR ---
SHIFT SUMMARY PT IS ALERT AND DISORIENTED X1 SHE IS AWARE OF PERSON AND FAMILY. PT IS HALLUCINATING AND HAVING PARANOID DELUSIONS. FEARFUL AND ANXIOUS. PT HAD 2X SMALL BM TODAY. FALL RISK. BED IS IN THE LOWEST POSITION WITH THE ALARM ON AND CALL LIGHT IS IN REACH. NURSE OUTSIDE THE ROOM.
--- NOTE | 2022-09-24 19:35 | NUR ---
PT SLID DOWN OFF OF BED BETWEEN RAILS. PT STATED THAT SHE DID NOT FALL OFF BUT SLID. BED ALARM WAS ON AND WENT OFF. PT DENIES PAIN OR HITTING ANY BODY PARTS.
[2022-09-24 19:58] VITALS: BP 127/93
--- NOTE | 2022-09-25 05:07 | NUR ---
HYSTER DRIVER SUMMARY PT A/OX TO SELF. NO ACUTE EVENTS OR CHANGES. PT RCVD 50MG OF SEROQUEL W/2100 MEDS. PT SLEPT 4-5 HOURS OVER NIGHT INTERMITTANTLY BUT OVERAL LESS RESTLESS THAN PREVIOUS NIGHTS. PT REMAINS ON MONITOR. ALERTED TO MANY ATTEMPTS OOB. BED ALARM SET.
[2022-09-25 05:46] VITALS: BP 125/90
[2022-09-25 06:19] LABS: Bun/Creatinine Ratio 20.5 (12.0-20.0); Calcium, Blood 9.3 mg/dL (8.5-10.1); Creatinine, Blood 0.44 mg/dL (0.40-1.00); Potassium, Blood 3.7 mmol/L (3.5-5.5)
[2022-09-25 08:15] VITALS: BP 130/94
[2022-09-25 16:28] VITALS: BP 124/90
--- NOTE | 2022-09-25 17:36 | NUR ---
PATIENT WITH INTERMITTENT PAIN TO LEGS/FEET, NUMBNESS AND TINGLING TO HANDS/FEET. TREATED PER EMAR. PATIENT UP TODAY TO BEDSIDE COMMODE 2 PERSON MAX ASSIST PROGRESSING WELL. ANXIETY TREATED PER EMAR. PATIENT UP IN WHEELCHAIR FOR ALL MEALS. WILL CONTINUE TO MONITOR.
--- NOTE | 2022-09-25 17:49 | NUR ---
THIS CERTIFIED MEDICAL RECORDS CODER HAS REVIEWED AND AGREES WITH ALL NOTES AND ASSESSMENTS BY MILAGROS QUANG.
[2022-09-25 20:34] VITALS: BP 110/88
[2022-09-26 02:59] VITALS: BP 121/86
--- NOTE | 2022-09-26 05:26 | NUR ---
SHIFT SUMMARY PT SITTING UP IN BED DURING BEDSIDE ROUNDS- PT SITTING UP IN BED- PT PARTICIPATED IN BEDSIDE REPORT- PT ASKED TO USE BSC TWICE AT THE BEGINNING OF SHIFT- PT HAD SMALL BM- PT FEARFUL WHEN TRANSFERRING - REMINDED PT THAT WE ARE THERE TO ASSIST AND THAT SHE WON'T FALL- PT AGREED AND FOLLOWED DIRECTIONS TO COMMODE- PT REPORTED HAVING INCREASED PAIN IN BILAT LEGS/FEET AND INCREASED ANXIETY- GAVE TYLENOL AND HYDROXYZINE-
[2022-09-26 08:28] VITALS: BP 119/94
[2022-09-26 15:52] VITALS: BP 125/82
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
--- NOTE | 2022-09-26 18:18 | NUR ---
THIS MONOGRAM OPERATOR HAS REVIEWED AND AGEES WITH ALL NOTES AND ASSESSMENTS BY MILAGROS SEPTEMBER.
[2022-09-26 19:52] VITALS: BP 134/55
--- NOTE | 2022-09-27 05:00 | NUR ---
Pt. has been awake all night, finally resting @ 0500. Will attempt to take vitals again before end of shift, Up and down to restroom and bed side commode twice, with minimal urine output of 25ml both times. RN aware
--- NOTE | 2022-09-27 05:07 | NUR ---
SHIFT SUMMARY PT REQUESTED TO SIT ON BSC DURING BEDSIDE ROUNDS- PT TRANSFERRED WITH GAIT BELT AND 2 STAFF ASSIST- PT FEARFUL DURING TRANSFER- PT SAT ON BSC AND CALLED APPROPRIATELY WHEN DONE- PT HALLUCINATING AT BEGINNING OF SHIFT - PT HAVING BOTH AUDIBLE AND VISIBLE HALLUCINATIONS- REORIENTED PT- TURNED ON LIGHTS AND SHOWED PT THAT NO ONE WAS IN ROOM- GAVE HYDROXYZINE WITH HS MEDS- PT CONTINUED TO HALLUCINATE IN NIGHT- PT CALLING OUT TO CALL SECURITY AND REMOVE THE PEOPLE FROM HER ROOM- CALL TO DR. MARTINEZ RE: CONTINOUS INSOMINA AND HALLUCINATIONS- DISCUSSED WITH DRKevin - DR. MARTINEZ ASKED THAT I GIVE ANOTHER DOSE OF HYDROXYZINE- GAVE DOSE, APPLIED WARM BLANKET AND ENCOURAGED PT TO TRY TO STAY LAYING DOWN TO ENCOURAGE SLEEP- PT AGREED- 0155 PT AWAKENED HALLUCINATING YELLING FOR EVERYONE TO LEAVE ROOM, REORIENTED PT THAT SHE IS ONLY ONE IN ROOM- ENCOURAGED PT TO RETURN TO SLEEPING, PT HAD INTERMITTEN MOMENTS OF SLEEP THEN WAKES HALLUCINATING TALKING TO IMAGINARY PEOPLE IN ROOM, REORIENT EACH TIME AND ENCOURAGE PT TO TRY TO REST, ENCOURAGED PT TO DRINK ADDITIONAL FLUIDS D/T LOW URINE OUTPUT AND STRONG SMELLING URINE BED LOW POSITION, CALL LIGHT WITHIN REACH, BED ALARM IN PLACE
[2022-09-27 06:20] VITALS: BP 128/90
[2022-09-27 07:10] VITALS: BP 125/93
[2022-09-27] MEDS ORDERED: FOLI1 PO (14:08)
[2022-09-27] MEDS ORDERED: GABA300 PO (14:08)
[2022-09-27] MEDS ORDERED: Hair, Skin & N1 EACH PO (14:09)
[2022-09-27] MEDS ORDERED: PYRI100 PO (14:09)
[2022-09-27] MEDS ORDERED: B-1100 M1 PO (14:10)
--- NOTE | 2022-09-27 15:33 | NUR ---
SHIFT SUMMARY MS VOSS IS ORIENTATED TO HER NAME AND TO [facility]. SHE CAN FOLLOW DIRECTIONS AND ANSWER QUESTIONS APPROPRIATELY. SHE HAS NOT VOICED ANY HALLUCINATIONS TO ME TODAY. HER FAMILY HAS VISITED AND PT SAID SHE IS LOOKING FORWARD TO GOING HOME. DISCHARGE DELAYED FROM TODAY PER DR LEÓN. PT IN MRI NOW. SHE C/O SOME CLAUSTROPHOBIA AND WAS GIVEN 1MG ATIVAN IV PER MRI. SHE IS WEAK, POOR DEXTERITY IN BOTH HANDS. LEFT HAND STRONGER THAN RIGHT. ABLE TO STAND AND TRANSFER WITH GAIT BELT, WALKER AND 1 PERSON ASSISTANCE. UNSTEADY STEPS. TACHYCARDIA CONTINUES. PO FLUIDS ENCOURAGED. BED LOW, CALL LIGHT IN REACH, BED ALARM AND CHAIR ALARM IN USE.
[2022-09-27 16:22] VITALS: BP 135/99
--- NOTE | 2022-09-27 16:59 | NUR ---
SHIFT SUMMARY MS RO IS ORIENTATED TO HER NAME, NOT TO PLACE, DATE OR SITUATION. SHE HAS BEEN UP TO THE BATHROOM WITH 1 PERSON ASSISTANCE AND UP TO CHAIR. IVF CONTINUE AT 125CC/HR. NO C/O PAIN. LOW BLOOD SUGAR BEFORE BREAKFAST, MEDS ADJUSTED BY DR BACK. FAMILY VISITED HER TODAY. BED LOW, CALL LIGHT IN REACH. BED ALARM ON.
--- NOTE | 2022-09-27 17:29 | NUR ---
RN NOTE ADDLeticia MS VOSS IS HALLUCINATING, SEEING CHILDREN IN HER ROOM.
[2022-09-27 20:08] VITALS: BP 132/93
[2022-09-28 03:50] VITALS: BP 134/92
--- NOTE | 2022-09-28 04:32 | NUR ---
SHIFT SUMMARY PT SITTING UP IN BED DURING BEDSIDE REPORT- PT TOOK SCHEDULED MEDICATIONS WITHOUT PROBLEMS- PT HALLUCINATING AND HAD INCREASED ANXIETY - GAVE ADDITIONAL DOSE OF SEROQUEL- PT AWAKENED T/O NIGHT A FEW TIMES- PT DID GET SOME SLEEP FOR A FEW HOURS IN THE NIGHT- BED LOW POSITION, CALL LIGHT WIHIN REACH, BED ALARM IN PLACE
[2022-09-28 07:20] VITALS: BP 113/75
[2022-09-28] MEDS ORDERED: QUET100 PO (10:37)
[2022-09-28 16:06] VITALS: BP 138/87
--- NOTE | 2022-09-28 17:58 | NUR ---
MAKES NEEDS KNOWN, OREINTED TO MOST, LESS HALLUCINATION TODAY MORE ALERT, DISCHARGE ORDERS DONE IV REMOVED AND THEN WAS PUT ON HOLD FOR POSSIBLE INCREASED FOOT DROP, HAVING ANOTHER SPINE MRI NOW, FAMILY BROTHER LAYLA AND DAD, VERY SUPPORTIVE AND HELPFUL, CALL LIGHT WITH IN REACH, PATIENT WAS EMOTIONAL ABOUT STAYING MEDICATED WITH SEROQUEL, MEDICATED FOR ATIVAN FOR CLAUSTROPHOBIA IN THE MRI, PLEASANT TO CARE, POSSIBLE DISCHARGE AGAIN TOMORROW, CALL LIGHT WITH IN REACH
[2022-09-28 20:00] VITALS: BP 132/92
[2022-09-29 03:48] VITALS: BP 116/87
--- NOTE | 2022-09-29 04:18 | NUR ---
SHIFT SUMMARY PATIENT HAD NO ACUTE CHANGES. AXOX 3 WITH A COUPLE OF AUDITORY/VISUAL HALLUCINATIONS. PIV REMAINS INTACT. TACHY/AFEBRILE. DENIES CHEST PAIN, SOB, AND N/V. WEAK HAND ROTARY SURFACE GRINDER DROPPING WATER AND KNOCKING OVER FAN REACHING FOR IT. UP THE FIRST HALF OF SHIFT SITTING ON SIDE OF BED AND NEXT ABLE TO SLEEP FOR A FEW HOURS. CALL LIGHT IN REACH. BED IN LOWEST POSITION. WILL CONTINUE TO MONITOR UNTIL DAY SHIFT NURSE ASSUMES CARE.
[2022-09-29 06:32] LABS: Bun/Creatinine Ratio 20.2 (12.0-20.0); Calcium, Blood 9.7 mg/dL (8.5-10.1); Creatinine, Blood 0.5 mg/dL (0.40-1.00); Potassium, Blood 3.9 mmol/L (3.5-5.5)
[2022-09-29 07:54] VITALS: BP 123/95
[2022-09-29 15:45] VITALS: BP 121/95
--- NOTE | 2022-09-29 16:55 | NUR ---
SHIFT SUMMARY NO ACUTE CHANGES DURING SHIFT. PT ALERT AND ORIENTED 3-4, STILL WITH HALLUCINATIONS. PT REMAINS ON RA, X 1 ASSIST TO WHEELCHAIR. PT PENDING TELE PSYCH AND ECHO. ALL MEDICATIONS TRANSITIONED TO PO. WILL CONTINUE TO MONITOR. CALL LIGHT WITHIN REACH.
[2022-09-29 19:25] VITALS: BP 128/93
--- NOTE | 2022-09-29 22:07 | NUR ---
TELEPSYCHIATRY APPOINTMENT WITH DR URENA COMPLETE. DR URENA REPORTS WILL PUT IN MEDICATION ORDER IN MORNING WITH ADDITIONAL DOSE OF SEROQUEL. PATIENT MILDLY ANXIOUS BUT DID OVERALL WELL WITH INTERVIEW AND ANSWERING QUESTIONS APPROPRIATELY. PATIENT SATISFIED WITH DR URENA AND HIS SUGGESTIONS. ROLAND.
--- NOTE | 2022-09-30 04:03 | NUR ---
SHIFT SUMMARY PATIENT HAD NO ACUTE CHANGES. AXOX 3-4 AND NO HALLUCINATIONS OBSERVED. TELEPSYCHIATRY INTERVIEW WITH DR URENA (SEE NOTE). TWO ASSIST TO BSC. ON ROOM AIR. ANXIOUS AT TIMES. VSS/AFEBRILE. DENIES CHEST PAIN, SOB, AND N/V. NO IV ACCESS. COOPERATIVE WITH CARE. ABLE TO SLEEP MORE THIS SHIFT. CALL LIGHT IN REACH. BED IN LOWEST POSITION. WILL CONTINUE TO MONITOR UNTIL DAY SHIFT NURSE ASSUMES CARE.
[2022-09-30 05:04] VITALS: BP 126/95
[2022-09-30 07:53] VITALS: BP 126/100
--- NOTE | 2022-09-30 17:07 | NUR ---
SHIFT SUMMARY NO ACUTE CHANGES DURING SHIFT. PT ALERT, CALLS APPROPRIATELY. PT IN WHEELCHAIR MAJORITY OF SHIFT. ECHO COMPLETED, PENDING RESULTS. FAMILY TO SEE PT TODAY. PT MEDICATED WITH PRN MEDICATIONS X 2 D/T AGITATION. PT REMAINS ON RA. POSSIBLE D/C TOMORROW. WILL CONTINUE TO MONITOR. CALL LIGHT WITHIN REACH.
[2022-09-30 19:29] VITALS: BP 135/92
--- NOTE | 2022-10-01 04:16 | NUR ---
SHIFT SUMMARY PATIENT HAD NO ACUTE CHANGES. AXOX 3 AND ANXIOUS/TEARFUL AT TIMES. HALLUCINATIONS LAST FEW HOURS OF SHIFT. STAYED AWAKE THE WHOLE SHIFT SO FAR. DENIES CHEST PAIN, SOB, AND N/V. VSS/AFEBRILE. ON ROOM AIR. HER MOM CALLED TO CHECK ON PATIENT. NO IV ACCESS. CALL LIGHT IN REACH. BED IN LOWEST POSITION. WILL CONTINUE TO MONITOR UNTIL DAY SHIFT NURSE ASSUMES CARE.
[2022-10-01 07:49] VITALS: BP 132/91
[2022-10-01 14:11] LABS: Source, Urine Clean Catch
[2022-10-01 14:18] LABS: Bilirubin, Urine Neg (Neg); Blood, Urine 4+ (Neg); Glucose Qualitative, Urine Neg (Neg); Ketones, Urine 1+ (Neg); Leukocyte Esterase, Urine 3+ (Neg); Nitrite, Urine Neg (Neg); Protein, Urine 2+ (Neg); Urobilinogen, Urine NORM (Normal)
[2022-10-01 14:28] LABS: Appearance, Urine Hazy (Clear); Color, Urine Yellow (P-Yellow); White Blood Cells, Urine TNTC /hpf (0-5)
[2022-10-01 14:29] LABS: Bacteria Many /hpf; Calcium Oxalate Crystals Few /hpf; Squamous Epithelial Cells Mod /hpf (Few); Transitional Epithelial Cells Few /hpf (0-Rare)
[2022-10-01 15:36] LABS: BASOPHILS ABSOLUTE AUTO 0.08 K/mm3 (0.00-0.23); BASOPHILS PERCENT AUTO 1 % (0-2); EOSINOPHILS ABSOLUTE AUTO 0.08 K/mm3 (0.00-0.68); EOSINOPHILS PERCENT AUTO 1 % (0-6); Hematocrit 40.7 % (33.0-51.0); Hemoglobin 13.6 g/dL (11.5-16.0); IMMATURE GRAN ABSOLUTE AUTO 0.02 K/mm3 (0.00-0.10); IMMATURE GRAN PERCENT AUTO 0 % (0-1); LYMPHOCYTES ABSOLUTE AUTO 1.56 K/mm3 (0.84-5.20); LYMPHOCYTES PERCENT AUTO 25 % (21-46); MONOCYTES ABSOLUTE AUTO 0.71 K/mm3 (0.16-1.47); MONOCYTES PERCENT AUTO 11 % (4-13); Mean Corpuscular HGB 32.2 pg (26.0-34.0); Mean Corpuscular HGB Conc 33.4 g/dL (31.5-36.5); Mean Corpuscular Volume 96 fL (80-100); Mean Platelet Volume 10.3 fL (9.1-12.4); NEUTROPHILS ABSOLUTE AUTO 3.92 K/mm3 (1.96-9.15); NEUTROPHILS PERCENT AUTO 62 % (41-73); Platelet Count 411 K/mm3 (150-400); RDW Coefficient Variation 12.9 % (11.7-14.2); Red Blood Cell Count 4.23 M/mm3 (3.80-5.20); White Blood Cell Count 6.37 K/mm3 (4.00-11.30)
[2022-10-01 15:55] LABS: Bun/Creatinine Ratio 21.4 (12.0-20.0); Calcium, Blood 10.2 mg/dL (8.5-10.1); Creatinine, Blood 0.51 mg/dL (0.40-1.00); Magnesium, Blood 2.4 mg/dL (1.6-2.4); Potassium, Blood 3.8 mmol/L (3.5-5.5)
[2022-10-01 16:07] VITALS: BP 129/91
--- NOTE | 2022-10-01 19:53 | NUR ---
PT A&0X2-3 AND COOPERATIVE OF CARE. PT HAVING VISSUAL AND AUDITORY HALLUCINATIONS T/O DAY. PT TALKING WITH FAMILY MEMBERS THAT WERE NOT IN ROOM. PT VERBALIZED SEEING RABIT ON BED. TEARFUL AND ANXIOUS AT TIMES BUT REASURABLE. PT C/O OF FEELING UTI SYMPTOMS AND PAIN. UA COLLECTED AND UTI CONFIRMED. PT GIVEN PHENAZOPYRIDINE FOR UTI PAIN WHICH DR ADVISED CAN MAKE URINE RED. PT TO RECIEVE FLUIDS AND DC HOME WITH BROTHER TOMORROW. BED IN LOWEST POSITION AND CALL LIGHT IN REACH.
[2022-10-02 00:10] LABS: HIV AB/P24 AG SCREEN Non Reactive (Non Reactive)
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
[2022-10-02 04:35] VITALS: BP 121/87
[2022-10-02 05:00] LABS: Bun/Creatinine Ratio 16.7 (12.0-20.0); Calcium, Blood 9.1 mg/dL (8.5-10.1); Creatinine, Blood 0.54 mg/dL (0.40-1.00); Potassium, Blood 4.3 mmol/L (3.5-5.5)
[2022-10-02 07:33] VITALS: BP 135/69
[2022-10-02 07:34] VITALS: BP 135/69
[2022-10-02] MEDS ORDERED: CIPR500 PO (11:51)
[2022-10-02] MEDS ORDERED: SULTRIDS PO (11:52)
[2022-10-02] MEDS ORDERED: TRAZ50 PO ×2 (12:04)
--- NOTE | 2022-10-02 12:49 | NUR ---
DISCHARGE CALLED PT JANAY TALBERT AT [phone], LETTING HER KNOW THAT PT DISCHARGE IS COMPLETE AND PERSCRIPTIONS HAVE BEEN FAXED TO [facility]. CONTINUE POC.
--- NOTE | 2022-10-02 15:23 | NUR ---
DISCHARGE HOME PT DISCHARGED HOME VIA PT W/C. CAREGIVER HERE TO HELP HER. IV REMOVED. CONTINUE POC.
== END 2022-10-02 15:20 | disposition home or self-care (01) | DRG 896 ==
LOC: ER 14:25 → MEDS 14:26 → PCU 14:26 → MEDS 14:26 → EDBEDREQSVC 23:33 → EDBEDREQ 23:33 → EDBEDREQTM 23:33 → MEDS 09-13 00:48 → ICUW 09-14 15:01 → PCU 09-14 15:28 → ICUW 09-14 16:16 → PCU 09-15 15:09 → MEDS 09-20 18:10 → ENPENDDIS 09-28 10:12 → MEDS 10-02 15:20
PROVIDERS: Emergency Medicine; Family Medicine; Hospitalist; Physician Assistant; Student in an Organized Health Care Education/Training Program; ADMIT Internal Medicine
DX: F10.231 Alcohol dependence with withdrawal delirium (principal); G92.8 Other toxic encephalopathy; G72.1 Alcoholic myopathy; E51.11 Dry beriberi; K51.90 Ulcerative colitis, unspecified, without complications; N39.0 Urinary tract infection, site not specified; E87.1 Hypo-osmolality and hyponatremia; E87.6 Hypokalemia; E83.42 Hypomagnesemia; F17.210 Nicotine dependence, cigarettes, uncomplicated; E86.0 Dehydration; F50.82 Avoidant/restrictive food intake disorder; G62.1 Alcoholic polyneuropathy; R74.01 Elevation of levels of liver transaminase levels; F41.9 Anxiety disorder, unspecified; E83.39 Other disorders of phosphorus metabolism; E53.8 Deficiency of other specified B group vitamins; B95.2 Enterococcus as the cause of diseases classified elsewhere; G47.00 Insomnia, unspecified; G62.9 Polyneuropathy, unspecified; F31.9 Bipolar disorder, unspecified; F12.90 Cannabis use, unspecified, uncomplicated; R74.8 Abnormal levels of other serum enzymes; R32 Unspecified urinary incontinence; Y90.0 Blood alcohol level of less than 20 mg/100 ml; Z99.3 Dependence on wheelchair; Z71.41 Alcohol abuse counseling and surveillance of alcoholic; Z79.899 Other long term (current) drug therapy; Z87.19 Personal history of other diseases of the digestive system; Z88.0 Allergy status to penicillin; Z91.018 Allergy to other foods
CPT/HCPCS: 36415; 51702; 70450; 70553; 72146; 72148; 72156; 74177; 80048; 80053; 81001; 81003; 82248; 82550; 82607; 82746; 83605; 83655; 83690; 83735; 84100; 84132; 84443; 84446; 84703; 85025; 85027; 86592; 87040; 87077; 87086; 87186; 87389; 93005; 93010; 93306; 96361; 96365-59; 96366; 96367; 96368; 96372; 96375; 96376; 97110; 97110-CQ; 97162; 97530; 99285-25; A9270; A9579; G0378; G0480; J0696; J1650; J1885; J1956; J2060; J2405; J3010; J3411; J3475; J3480; J7030; J7040; J7050; J7120; Q9967

== ENCOUNTER 2023-11-13 06:18 | Observation (INO) | payer OTHER ==
[~2023-11-13] VITALS: Ht 160 cm; Wt 95.2 kg
[2023-11-13] VITALS (11 sets, daily range): BP systolic 100–135; BP diastolic 57–92
[~2023-11-13 06:18] MED LIST changes: +ACET500 PO; +B-1100 M1 PO; +CIPR500 PO; +FOLI1 PO; +GABA300 PO; +Hair, Skin & N1 EACH PO; +IBUP600 PO; +PYRI100 PO; +QUET100 PO; +SULTRIDS PO; +TRAZ50 PO
[2023-11-13] MEDS ORDERED: NS 1,000 ML IV SCH (07:00)
[2023-11-13] MEDS ORDERED: Ondansetron HCl 2 MG / ML 2ML Vial IV ONE (07:00)
[2023-11-13] MEDS ORDERED: Ketorolac Tromethamine 30mg Vial IV ONE (07:00)
[2023-11-13] MEDS ORDERED: HYDROmorphone HCl/Pf 1MG SYR IV ONE (07:00)
[2023-11-13 07:14] LABS: BASOPHILS ABSOLUTE AUTO 0.06 K/mm3 (0.00-0.23); BASOPHILS PERCENT AUTO 1 % (0-2); EOSINOPHILS ABSOLUTE AUTO 0.06 K/mm3 (0.00-0.68); EOSINOPHILS PERCENT AUTO 1 % (0-6); Hemoglobin 13.6 g/dL (11.5-16.0); IMMATURE GRAN ABSOLUTE AUTO 0.04 K/mm3 (0.00-0.10); IMMATURE GRAN PERCENT AUTO 0 % (0-1); LYMPHOCYTES ABSOLUTE AUTO 1.72 K/mm3 (0.84-5.20); LYMPHOCYTES PERCENT AUTO 16 % (21-46); MONOCYTES ABSOLUTE AUTO 0.48 K/mm3 (0.16-1.47); MONOCYTES PERCENT AUTO 4 % (4-13); Mean Corpuscular HGB 27.4 pg (26.0-34.0); Mean Corpuscular HGB Conc 32.4 g/dL (31.5-36.5); Mean Corpuscular Volume 85 fL (80-100); NEUTROPHILS ABSOLUTE AUTO 8.76 K/mm3 (1.96-9.15); NEUTROPHILS PERCENT AUTO 79 % (41-73); Platelet Count 492 K/mm3 (150-400); RDW Coefficient Variation 14.1 % (11.7-14.2); RDW Standard Deviation 43.5 fL (35.1-46.3); Red Blood Cell Count 4.96 M/mm3 (3.80-5.20); White Blood Cell Count 11.12 K/mm3 (4.00-11.30)
[2023-11-13 07:35] LABS: Beta HCG, Quantitative, Serum <1 mIU/mL (0-3)
[2023-11-13 08:05] LABS: Alanine Aminotransfer (ALT/SGP 10 U/L (12-78); Albumin, Blood 3.1 g/dL (3.4-5.0); Albumin/Globulin Ratio 0.7 (0.8-1.8); Alk Phos 65 U/L (50-136); Anion Gap 9 mmol/L (3-11); Aspartate Aminotrans (AST/SGOT 19 U/L (12-37); Bilirubin, Direct <0.1 mg/dL (0.0-0.3); Bilirubin, Indirect Unable to Calculate mg/dL (0.1-0.7); Bilirubin, Total 0.2 mg/dL (0.1-1.0); Blood Urea Nitrogen 11 mg/dL (8-24); Bun/Creatinine Ratio 19.3 (12.0-20.0); CO2, Blood 22 mmol/L (21-32); Calcium, Blood 9.3 mg/dL (8.5-10.1); Chloride, Blood 111 mmol/L (98-108); Creatinine, Blood 0.57 mg/dL (0.40-1.00); Globulin, Blood 4.4 g/dL (2.2-4.0); Glomerular Filtration Rate 127 (60-); Glucose, Blood 149 mg/dL (70-99); Potassium, Blood 4.1 mmol/L (3.5-5.5); Sodium, Blood 138 mmol/L (136-145); Total Protein, Blood 7.5 g/dL (6.4-8.2)
[2023-11-13] MEDS ORDERED: Morphine Sulfate 4 MG/1 ML Injection IV ONE (09:10)
[2023-11-13] MEDS ORDERED: ZOLOFT50 MG PO (10:04)
[2023-11-13] MEDS ORDERED: Morphine Sulfate 10 MG/ML 1MLSYR IV PRN (11:00)
[2023-11-13] MEDS ORDERED: Ondansetron HCl 2 MG / ML 2ML Vial IV PRN (11:00)
[2023-11-13] MEDS ORDERED: Lactated Ringer's 1,000 ML IV SCH ×3 (11:00→14:50)
[2023-11-13] MEDS ORDERED: Lactated Ringer's 1,000 ML IV ONE (11:36)
[2023-11-13] MEDS ORDERED: Bupivacaine 0.5% HCl 5 MG/ML 30MLVIAL ONE (12:32)
[2023-11-13 12:47] LABS: Source, Urine Clean Catch
[2023-11-13 12:57] LABS: Appearance, Urine Clear (Clear); Bilirubin, Urine Neg (Neg); Blood, Urine Neg (Neg); Color, Urine Yellow (P-Yellow); Glucose Qualitative, Urine Neg (Neg); Ketones, Urine Neg (Neg); Leukocyte Esterase, Urine 1+ (Neg); Nitrite, Urine Neg (Neg); Protein, Urine 1+ (Neg); Specific Gravity, Urine 1.015 (1.003-1.022); Urobilinogen, Urine NORM (Normal)
[2023-11-13 13:08] LABS: Bacteria Rare /hpf; Red Blood Cells, Urine Not Seen /hpf (0-2); Squamous Epithelial Cells Mod /hpf (Few)
--- NOTE | 2023-11-13 13:10 | NUR ---
PT BROUGHT ON SELINA FROM ER TO [facility]PA[facility] Pre-Op teaching done. Pt verbalizes understanding. History, Chart, Medications and Allergies reviewed before start of procedure.Patient confirms NPO status and agrees with scheduled surgery. WATER AT 0600 11/13/23, FOOD AT 2330 11/12/23
[2023-11-13] MEDS ORDERED: CeFAZolin Sodium 2,000 MG in NS 100 ML IV SCH (13:20)
[2023-11-13] MEDS ORDERED: Rocuronium Bromide 10 MG/ML 5ML Injection IV ONE (13:35)
[2023-11-13] MEDS ORDERED: propofoL 40 ML IV ONE (13:35)
[2023-11-13] MEDS ORDERED: FentaNYL Citrate 50 MCG/ML 2 ML Injection ONE ×2 (13:35→13:48)
[2023-11-13] MEDS ORDERED: Dexamethasone Sod Phos 10 MG/ML 1ML VIAL ONE (14:12)
[2023-11-13] MEDS ORDERED: Metoclopramide HCl 5MG / ML 2ML Vial ONE (14:12)
[2023-11-13] MEDS ORDERED: Ondansetron HCl 2 MG / ML 2ML Vial ONE (14:12)
[2023-11-13] MEDS ORDERED: Sugammadex Sodium 200 MG/2ML SDV (100 MG/ML) ONE (14:43)
[2023-11-13] MEDS ORDERED: HYDROcodone 5-APAP 325 TAB PO PRN (14:50)
--- NOTE | 2023-11-13 15:37 | NUR ---
PATIENT ARRIVED FROM PACU TODAY. POD 0 LAP HERNIA REPAIR PATIENT IS A&OX4. VS ARE WNL AND IS ON RA. PATIENT DENIES PAIN AT THIS TIME. HER ABD HAS X1 GAUZE WITH TEGADERM INCISION THAT IS C/D/I. BOWEL TONES ARE HYPOACTIVE. SHE IS TOLERATING SMALL AMOUNTS OF PO INTAKE. PATIENT IS LAYING IN BED WITH CALL LIGHT IN REACH AND FAMILY AT BEDSIDE.
[2023-11-13] MEDS ORDERED: Norco 5-325 Ta1 EACH PO (17:25)
--- NOTE | 2023-11-13 17:37 | NUR ---
DISCHARGE NOTE: POD 0 HERNIA REPAIR PATIENT IS A&OX4. VS ARE WNL AND IS ON RA. PATIENT HAS DENIED PAIN AND REFUSED PAIN MEDS. HARD PERSCRIPTION WAS PLACED IN DISCHARGE FOLDER. IV WAS TAKEN OUT AND WNL. HER ABD HAS X1 UMBILICAL INCISION WITH GAUZE AND TEGADERM THAT IS C/D/I. SHE IS TOLERATING PO INTAKE AND IS VOIDING. PATIENT IS DRESSED AND HAS PERSONAL ITEMS IN THE ROOM GATHERED. PATIENT IS WAITING FOR HER RIDE TO ARRIVE TO TAKE HER HOME.
--- NOTE | 2023-11-13 18:00 | NUR ---
PATIENT IS BEING WHEELCHAIRED OUT TO HER MOTHERS CAR TO BE TAKEN HOME. SHE HAS ALL OF HER PERSONAL BELONGINGS WITH HER.
[2023-11-14] MEDS ORDERED: Enoxaparin 40 MG/0.4 ML SYR SC SCH (09:00)
--- NOTE | 2023-11-18 10:42 | NUR ---
11/18/23 1042 Alina Puente VERIFICATIONS: EDIT CHART.
== END 2023-11-13 18:00 | disposition home or self-care (01) ==
LOC: ER 06:18 → SURS 06:19
PROVIDERS: Student in an Organized Health Care Education/Training Program; Surgery; ADMIT Hospitalist
PROC: 0WUF0JZ Supplement Abdominal Wall with Synthetic Substitute, Open Approach (ICD-10-PCS; principal; 2023-11-13 12:30)
DX: K42.0 Umbilical hernia with obstruction, without gangrene (principal); F17.200 Nicotine dependence, unspecified, uncomplicated; Z88.0 Allergy status to penicillin; Z91.018 Allergy to other foods; Z87.19 Personal history of other diseases of the digestive system
CPT/HCPCS: 74177; 80048; 80076; 81001; 83605; 83690; 83735; 84702; 85025; 87086; 93005; 93010; 96361; 96374-59; 96375; 96376; 99285-25; C1781; G0378; J0690; J1100; J1170; J1885; J2270; J2405; J2704; J2765; J3010; J7030; J7120; Q9967

== ENCOUNTER → 2023-12-18 | Outpatient (CLI) | payer OTHER ==
[~2023-12-18] MED LIST changes: +Norco 5-325 Ta1 EACH PO; +ZOLOFT50 MG PO
== END ==
LOC: LAB 18:31 → LAB SHORT 18:31
DX: R10.9 Unspecified abdominal pain (principal)
CPT/HCPCS: 87086

== ENCOUNTER → 2024-02-25 | Outpatient (CLI) | payer OTHER ==
[~2024-02-25] MED LIST changes: +CEPH500 PO
[2024-02-25 15:31] LABS: Bacterial Vaginosis PCR Negative (NEGATIVE); Candida glabrata-krusei, PCR NOT DETECTED (NOT DETECT)
[2024-02-25 15:32] LABS: Candida Group, PCR DETECTED (NOT DETECT)
[2024-02-27 03:59] LABS: APTIMA MEDIA TYPE Urine; C. TRACHOMATIS BY TMA Negative (Negative); N. GONORRHOEAE BY TMA Negative (Negative); SPECIMEN SOURCE Urine
== END | disposition home or self-care (01) ==
LOC: LAB SHORT 11:07 → LAB 11:07
PROVIDERS: Family Medicine
DX: Z20.2 Contact with and (suspected) exposure to infections with a predominantly sexual mode of transmission (principal)
CPT/HCPCS: 87481; 87491; 87591; 87661; 87801

== ENCOUNTER → 2024-09-22 | Outpatient (CLI) | payer OTHER ==
[2024-09-22 16:50] LABS: Bacterial Vaginosis PCR Negative (NEGATIVE); Candida Group, PCR NOT DETECTED (NOT DETECT); Candida glabrata-krusei, PCR NOT DETECTED (NOT DETECT)
[2024-09-24 11:08] LABS: C. TRACHOMATIS BY TMA,THINPREP Negative (Negative); N. GONORRHOEAE BY TMA,THINPREP Negative (Negative); SPECIMEN SOURCE Cervical
== END ==
LOC: LAB 14:40 → LAB SHORT 14:40
PROVIDERS: Family Medicine
DX: Z01.419 Encounter for gynecological examination (general) (routine) without abnormal findings (principal)
CPT/HCPCS: 81515; 87491; 87591

== ENCOUNTER 2024-09-30 09:38 | Emergency (ER) | payer OTHER ==
[~2024-09-30] VITALS: Ht 160 cm; Wt 104.3 kg
[2024-09-30] MEDS ORDERED: HUMIRA(CF)40 MG/0.4 SQ (10:12)
[2024-09-30 12:00] LABS: BASOPHILS ABSOLUTE AUTO 0.05 K/mm3 (0.00-0.23); BASOPHILS PERCENT AUTO 1 % (0-2); EOSINOPHILS ABSOLUTE AUTO 0.17 K/mm3 (0.00-0.68); EOSINOPHILS PERCENT AUTO 3 % (0-6); Hematocrit 44.7 % (33.0-51.0); Hemoglobin 14.3 g/dL (11.5-16.0); IMMATURE GRAN ABSOLUTE AUTO 0.01 K/mm3 (0.00-0.10); IMMATURE GRAN PERCENT AUTO 0 % (0-1); LYMPHOCYTES ABSOLUTE AUTO 2.49 K/mm3 (0.84-5.20); LYMPHOCYTES PERCENT AUTO 38 % (21-46); MONOCYTES ABSOLUTE AUTO 0.49 K/mm3 (0.16-1.47); MONOCYTES PERCENT AUTO 7 % (4-13); Mean Corpuscular HGB 28.2 pg (26.0-34.0); Mean Corpuscular Volume 88 fL (80-100); Mean Platelet Volume 9.7 fL (9.1-12.4); NEUTROPHILS ABSOLUTE AUTO 3.41 K/mm3 (1.96-9.15); NEUTROPHILS PERCENT AUTO 51 % (41-73); Platelet Count 183 K/mm3 (150-400); RDW Coefficient Variation 14.6 % (11.7-14.2); RDW Standard Deviation 46.5 fL (35.1-46.3); Red Blood Cell Count 5.07 M/mm3 (3.80-5.20); White Blood Cell Count 6.62 K/mm3 (4.00-11.30)
[2024-09-30] MEDS ORDERED: DiphenhydrAMINE HCl 50 MG/ML 1ML Vial IV ONE (12:05)
[2024-09-30] MEDS ORDERED: Prochlorperazine Edisylate 10 mg Vial IV ONE (12:05)
[2024-09-30 12:19] VITALS: BP 117/69
[2024-09-30 12:52] LABS: Albumin, Blood 3.5 g/dL (3.4-5.0); Albumin/Globulin Ratio 0.8 (0.8-1.8); Bilirubin, Total 0.3 mg/dL (0.1-1.0); Bun/Creatinine Ratio 18.7 (12.0-20.0); Calcium, Blood 8.7 mg/dL (8.5-10.1); Creatinine, Blood 0.64 mg/dL (0.40-1.00); Free Thyroxine 1.27 ng/dL (0.70-1.60); Globulin, Blood 4.2 g/dL (2.2-4.0); Potassium, Blood 4.5 mmol/L (3.5-5.5); Thyroid Stimulating Hormone 0.527 uIU/mL (0.360-4.800); Total Protein, Blood 7.7 g/dL (6.4-8.2); Triiodothyronine, Free 2.55 pg/mL (2.18-3.98)
== END 2024-09-30 13:41 | disposition home or self-care (01) ==
LOC: ER 09:38
PROVIDERS: Student in an Organized Health Care Education/Training Program
DX: R51.9 Headache, unspecified (principal); F17.210 Nicotine dependence, cigarettes, uncomplicated; Z88.0 Allergy status to penicillin; Z91.018 Allergy to other foods; Z79.899 Other long term (current) drug therapy
CPT/HCPCS: 80053; 84439; 84443; 84481; 85025; 93005; 93010; 96374; 96375; 99284-25; J0780; J1200

== ENCOUNTER 2024-10-09 20:32 | Emergency (ER) | payer OTHER ==
[~2024-10-09] VITALS: Ht 160 cm; Wt 101.2 kg
[~2024-10-09 20:32] MED LIST changes: +HUMIRA(CF)40 MG/0.4 SQ
[2024-10-09 21:12] LABS: BASOPHILS ABSOLUTE AUTO 0.08 K/mm3 (0.00-0.23); BASOPHILS PERCENT AUTO 1 % (0-2); EOSINOPHILS ABSOLUTE AUTO 0.28 K/mm3 (0.00-0.68); EOSINOPHILS PERCENT AUTO 4 % (0-6); Hematocrit 40.9 % (33.0-51.0); Hemoglobin 13.5 g/dL (11.5-16.0); IMMATURE GRAN ABSOLUTE AUTO 0.01 K/mm3 (0.00-0.10); IMMATURE GRAN PERCENT AUTO 0 % (0-1); LYMPHOCYTES ABSOLUTE AUTO 2.77 K/mm3 (0.84-5.20); LYMPHOCYTES PERCENT AUTO 42 % (21-46); MONOCYTES ABSOLUTE AUTO 0.62 K/mm3 (0.16-1.47); MONOCYTES PERCENT AUTO 10 % (4-13); Mean Corpuscular HGB 27.6 pg (26.0-34.0); Mean Corpuscular Volume 84 fL (80-100); Mean Platelet Volume 8.8 fL (9.1-12.4); NEUTROPHILS ABSOLUTE AUTO 2.79 K/mm3 (1.96-9.15); NEUTROPHILS PERCENT AUTO 43 % (41-73); Platelet Count 407 K/mm3 (150-400); RDW Coefficient Variation 14.5 % (11.7-14.2); RDW Standard Deviation 44.1 fL (35.1-46.3); White Blood Cell Count 6.55 K/mm3 (4.00-11.30)
[2024-10-09 21:43] LABS: Albumin, Blood 3.6 g/dL (3.4-5.0); Albumin/Globulin Ratio 0.9 (0.8-1.8); Bilirubin, Total 0.3 mg/dL (0.1-1.0); Bun/Creatinine Ratio 16.2 (12.0-20.0); Calcium, Blood 9.1 mg/dL (8.5-10.1); Creatinine, Blood 0.74 mg/dL (0.40-1.00); Globulin, Blood 3.8 g/dL (2.2-4.0); Potassium, Blood 3.6 mmol/L (3.5-5.5); Total Protein, Blood 7.4 g/dL (6.4-8.2)
[2024-10-10] VITALS: BP 134/91
[2024-10-10] MEDS ORDERED: Ketorolac Tromethamine 15mg Vial IV ONE (00:15)
[2024-10-10] MEDS ORDERED: Dexamethasone Sod Phos 10 MG/ML 1ML VIAL IV ONE (00:20)
[2024-10-10] MEDS ORDERED: Dexamethasone Sod Phos 10 MG/ML 1ML VIAL PO ONE (00:45)
[2024-10-10] MEDS ORDERED: Prochlorperazine Maleate 5 MG Tab PO ONE (00:45)
[2024-10-10] MEDS ORDERED: Ketorolac Tromethamine 15mg Vial IM ONE (00:45)
[2024-10-10] MEDS ORDERED: FERROUS GLUCON324 M7 PO (09:21)
[2024-10-10] MEDS ORDERED: GABA800 PO (23:00)
[2024-10-10] MEDS ORDERED: NS 1,000 ML IV SCH (23:55)
[2024-10-11] MEDS ORDERED: Diamox500 MG PO (15:58)
== END 2024-10-10 01:23 | disposition home or self-care (01) ==
LOC: ER 20:32
PROVIDERS: Student in an Organized Health Care Education/Training Program
DX: R51.9 Headache, unspecified (principal); F17.210 Nicotine dependence, cigarettes, uncomplicated
CPT/HCPCS: 80053; 85025; 96372; 99284; J1100; J1885; Q0164